=== PATIENT | male | born 1975 | race American Indian/Alaskan Native ===

== ENCOUNTER 2017-01-11 11:40 | Emergency (ER) | payer BC ==
[2017-01-11 12:16] VITALS: BP 121/74; PULSE 86; RESP 16; TEMP 98.9; O2SAT 97; BMI 43.8
--- NOTE | 2017-01-11 12:44 | ED PDOC ---
Arrival/HPI - General Chief Complaint: Abnormal Skin Integrity Time Seen by Provider: 01/11/17 12:40 Historian: Patient, Spouse - History of Present Illness Narrative History of Present Illness (Text): 01/11/17 12:52 A 42 year old male presents to the emergency department complaining of left buttock abscess for the past 10 days. Patient's said she tried to pop and drain it, but notes got bigger over the weekend. Patient denies smoking or alcohol use. Patient denies any other complaints at this time. Time/Duration: Other (10 days) Symptom Onset: Sudden Symptom Course: Unchanged Activities at Onset: Rest Context: Home Associated Symptoms (Text): none Past Medical History - Provider Review Nursing Documentation Reviewed: Yes - Infectious Disease Hx of Infectious Diseases: None - Tetanus Immunization Tetanus Immunization: Unknown - Cardiac Hx Cardiac Disorders: Yes Hx Hypertension: Yes Hx Peripheral Vascular Disease: Yes (RIGHT LEG 02-06-14) - Pulmonary Hx Respiratory Disorders: No Hx Pulmonary Embolism: Yes - Neurological Hx Neurological Disorder: No - HEENT Hx HEENT Disorder: No (WEARS RX GLASSES) - Renal Hx Renal Disorder: No - Endocrine/Metabolic Hx Endocrine Disorders: Yes Hx Diabetes Mellitus Type 1: Yes - Hematological/Oncological Hx Blood Disorders: No - Integumentary Hx Dermatological Disorder: No - Musculoskeletal/Rheumatological Hx Musculoskeletal Disorders: No Hx Falls: Yes - Gastrointestinal Hx Gastrointestinal Disorders: No - Genitourinary/Gynecological Hx Genitourinary Disorders: No - Psychiatric Hx Psychophysiologic Disorder: No Hx Depression: No Hx Emotional Abuse: No Hx Physical Abuse: No Hx Substance Use: No - Suicidal Assessment Feels Threatened In Home Enviroment: No Family/Social History - Physician Review Nursing Documentation Reviewed: Yes Family/Social History: No Known Family HX Smoking Status: Never Smoked Hx Alcohol Use: No Hx Substance Use: No Hx Substance Use Treatment: No Allergies/Home Meds Allergies/Adverse Reactions: Allergies shellfish derived Allergy (Verified 01/11/17 13:06) ANAPHYLAXIS Home Medications: Home Meds Medication Instructions Recorded Confirmed Glimepiride 2 mg PO DAILY 11/06/12 02/06/14 Metformin Hydrochloride/Lona 1 tab PO DAILY 11/06/12 02/06/14 [Janumet 1000 mg-50 mg] Warfarin [Coumadin] 10 mg PO HS 02/12/14 02/12/14 Apixaban [Eliquis] 5 mg PO DAILY 01/11/17 01/11/17 Review of Systems - Physician Review All systems were reviewed & negative as marked: Yes - Review of Systems Constitutional: absent: Fevers Respiratory: absent: SOB Skin: Abscess (Left buttock) Neurological: absent: Headache, Dizziness Physical Exam Vital Signs Reviewed: Yes Vital Signs Temp Pulse Resp BP Pulse Ox 01/11/17 12:13 98.9 F 86 16 121/74 97 Temperature: Afebrile Blood Pressure: Normal Pulse: Regular Respiratory Rate: Normal Appearance: Positive for: Well-Appearing, Non-Toxic, Uncomfortable, Other (obese ) Pain Distress: None Mental Status: Positive for: Alert and Oriented X 3 - Systems Exam Head: Present: Atraumatic, Normocephalic Pupils: Present: PERRL Extroacular Muscles: Present: EOMI Conjunctiva: Present: Normal Mouth: Present: Moist Mucous Membranes Neck: Present: Normal Range of Motion Respiratory/Chest: Present: Clear to Auscultation, Good Air Exchange. No: Respiratory Distress, Accessory Muscle Use Cardiovascular: Present: Regular Rate and Rhythm, Normal S1, S2. No: Murmurs Abdomen: Present: Normal Bowel Sounds. No: Tenderness, Distention, Peritoneal Signs Back: Present: Normal Inspection Upper Extremity: Present: Normal Inspection. No: Cyanosis, Edema Lower Extremity: Present: Normal Inspection. No: Edema Neurological: Present: GCS=15, CN II-XII Intact, Speech Normal Skin: Present: Abscess (L buttock). No: Other (not pilonidal, not perirectal) Psychiatric: Present: Alert, Oriented x 3, Normal Insight, Normal Concentration Medical Decision Making ED Course and Treatment: 01/11/17 12:50 Impression: A 42 year old male with left buttock abscess. Differential Diagnosis included but are not limited to: Plan: -- Reassess and disposition Prior Visits: Notes and results from previous visits were reviewed. Patient last reported to emergency department on 02/06/14 for evaluation of shortness of breath and chest discomfort. Patient was admitted to Dr. Barrow' service. Progress Notes: 01/11/17 20:39 Incision and drainage. The abscess was prepped and draped in usual sterile fashion using Betadine. One percent with epinephrine local lidocaine anesthesia was injected. Approximately 10 mL. The abscess was incised with a # 10 blade. Copious amounts of purulent material was expressed. 1 inch iodoform gauze packing was placed. Sterile dressing was applied. He tolerated the procedure well. - Scribe Statement The provider has reviewed the documentation as recorded by the [place] Pablo Provider Scribe Attestation: All medical record entries made by the Scribe were at my direction and personally dictated by me. I have reviewed the chart and agree that the record accurately reflects my personal performance of the history, physical exam, medical decision making, and the department course for this patient. I have also personally directed, reviewed, and agree with the discharge instructions and disposition. Disposition/Present on Arrival - Present on Arrival Any Indicators Present on Arrival: No History of DVT/PE: No History of Uncontrolled Diabetes: No Urinary Catheter: No History of Decub. Ulcer: No History Surgical Site Infection Following: None - Disposition Have Diagnosis and Disposition been Completed?: Yes Diagnosis: Abscess of buttock, left, Encounter for incision and drainage procedure Disposition: HOME/ ROUTINE Disposition Time: 13:08 Patient Plan: Discharge Condition: IMPROVED Discharge Instructions (ExitCare): Abscess (ED) Additional Instructions: Packing removal in 2 days. keep bowels soft. Prescriptions: Amoxicillin/Clavulanate [Augmentin 875 MG-125 MG] 1 tab PO Q12 #20 tab oxyCODONE/Acetaminophen [Percocet 5/325 mg Tab] 1 ea PO Q6 #15 tab Referrals: Nazario Ragland MD [Primary Care Provider] - Follow up with primary
== END 2017-01-11 13:37 | disposition home or self-care (01) ==
LOC: ED 11:40
DX: L02.31 Cutaneous abscess of buttock (principal)

== ENCOUNTER 2017-01-13 11:06 | Emergency (ER) | payer SELFPAY ==
[2017-01-13 11:30] VITALS: TEMP 98.9; BMI 42.6
[2017-01-13 11:53] VITALS: BP 113/79; PULSE 87; RESP 18; O2SAT 97
--- NOTE | 2017-01-13 13:47 | ED PDOC ---
Arrival/HPI - General Chief Complaint: Wound Check Time Seen by Provider: 01/13/17 13:15 Historian: Patient - History of Present Illness Narrative History of Present Illness (Text): 01/13/17 13:15 This 42 yo male presebnts to this ED with for wound recheck and packing removal. Patient had an I&D x 2 days ago. He stated abscess started x 12 days ago. Patient admits pain has improved since I&D. Denies new complains. Time/Duration: Other (2 days) Context: Home Past Medical History - Provider Review Nursing Documentation Reviewed: Yes - Infectious Disease Hx of Infectious Diseases: None - Tetanus Immunization Tetanus Immunization: Unknown - Cardiac Hx Cardiac Disorders: Yes Hx Hypertension: Yes Hx Peripheral Vascular Disease: Yes (RIGHT LEG 02-06-14) - Pulmonary Hx Respiratory Disorders: Yes Hx Pulmonary Embolism: Yes - Neurological Hx Neurological Disorder: No - HEENT Hx HEENT Disorder: No (WEARS RX GLASSES) - Renal Hx Renal Disorder: No - Endocrine/Metabolic Hx Endocrine Disorders: Yes Hx Diabetes Mellitus Type 1: Yes - Hematological/Oncological Hx Blood Disorders: No - Integumentary Hx Dermatological Disorder: No - Musculoskeletal/Rheumatological Hx Musculoskeletal Disorders: Yes Hx Falls: Yes - Gastrointestinal Hx Gastrointestinal Disorders: No - Genitourinary/Gynecological Hx Genitourinary Disorders: No - Psychiatric Hx Psychophysiologic Disorder: No Hx Depression: No Hx Emotional Abuse: No Hx Physical Abuse: No Hx Substance Use: No - Suicidal Assessment Feels Threatened In Home Enviroment: No Family/Social History - Physician Review Nursing Documentation Reviewed: Yes Family/Social History: No Known Family HX Smoking Status: Never Smoked Hx Alcohol Use: No Hx Substance Use: No Hx Substance Use Treatment: No Allergies/Home Meds Allergies/Adverse Reactions: Allergies shellfish derived Allergy (Verified 01/13/17 11:16) ANAPHYLAXIS Home Medications: Home Meds Medication Instructions Recorded Confirmed Apixaban [Eliquis] 5 mg PO BID 01/11/17 01/13/17 Empagliflozin/Linagliptin 1 tab PO DAILY 01/13/17 01/13/17 [Glyxambi 25 mg-5 mg Tablet] MetFORMIN [glucoPHAGE] 1,000 mg PO DAILY 01/13/17 01/13/17 oxyCODONE/Acetaminophen [Percocet 1 ea PO Q6 PRN 01/13/17 01/13/17 5/325 mg Tab] Review of Systems - Review of Systems Constitutional: Normal. absent: Fatigue, Weight Change, Fevers Eyes: Normal ENT: Normal Respiratory: Normal Cardiovascular: Normal Gastrointestinal: Normal Genitourinary Male: Normal Musculoskeletal: Normal Skin: Other (Packing removal left buttocks) Neurological: Normal Endocrine: Normal Hemo/Lymphatic: Normal Psychiatric: Normal Physical Exam Vital Signs Temp Pulse Resp BP Pulse Ox 01/13/17 11:52 87 18 113/79 97 01/13/17 11:16 98.9 F 120 H 16 111/80 96 Temperature: Afebrile Blood Pressure: Normal Pulse: Regular Respiratory Rate: Normal Appearance: Positive for: Well-Appearing, Non-Toxic, Comfortable Pain Distress: None Mental Status: Positive for: Alert and Oriented X 3 - Systems Exam Head: Present: Atraumatic, Normocephalic Pupils: Present: PERRL Extroacular Muscles: Present: EOMI Conjunctiva: Present: Normal Mouth: Present: Moist Mucous Membranes Neck: Present: Normal Range of Motion Respiratory/Chest: Present: Clear to Auscultation, Good Air Exchange. No: Respiratory Distress, Accessory Muscle Use Cardiovascular: Present: Regular Rate and Rhythm, Normal S1, S2. No: Murmurs Abdomen: Present: Normal Bowel Sounds. No: Tenderness, Distention, Peritoneal Signs Rectal: Present: Other ((+) packing in place. Less tenderness as per patient). No: Rectal Tenderness, Hemorrhoids Back: Present: Normal Inspection. No: CVA Tenderness Upper Extremity: Present: Normal Inspection. No: Cyanosis, Edema Lower Extremity: Present: Normal Inspection. No: Edema Neurological: Present: GCS=15, CN II-XII Intact, Speech Normal Skin: Present: Warm, Dry, Normal Color. No: Rashes Psychiatric: Present: Alert, Oriented x 3, Normal Insight, Normal Concentration Medical Decision Making ED Course and Treatment: 01/13/17 13:45 Patient is resting comfortably, and is in no acute distress. Patient was instructed to follow up with PMD in 1-2 days for further evaluation Re-evaluation Time: 13:45 Reassessment Condition: Re-examined, Improved - Medication Orders Current Medication Orders: Discontinued Medications Trimethoprim/Sulfamethoxazole (Bactrim Ds Tab) 1 tab PO STAT STA PRN Reason: Protocol Stop: 01/13/17 13:50 Last Admin: 01/13/17 14:06 Dose: - Procedure PROCEDURE NOTE (Text): 01/13/17 13:45 Procedure: Repacking Performed by the emergency provider Indication: Abscess Location: left buttock Preparation: The area was prepped and draped in the usual sterile fashion and was cleansed with . Procedure: Packing was inserted by me The abscess was packed 1/2 inch packing. A dressing was applied by the RN. Post-Procedure: On exam the abscess is notably less fluctuant. The patient tolerated the procedure well, and there were no complications. Disposition/Present on Arrival - Present on Arrival Any Indicators Present on Arrival: No History of DVT/PE: Yes History of Uncontrolled Diabetes: No Urinary Catheter: No History of Decub. Ulcer: No History Surgical Site Infection Following: None - Disposition Have Diagnosis and Disposition been Completed?: Yes Diagnosis: Encounter for wound re-check, Change or removal of wound packing Disposition: HOME/ ROUTINE Disposition Time: 13:48 Patient Plan: Discharge Condition: GOOD Discharge Instructions (ExitCare): Abscess Incision and Drainage (ED) Additional Instructions: Call private doctor for wound check and packing removal in 2 days. Return to emergency if unable to see your doctor. Continue with antibiotic. Prescriptions: Sulfamethoxazole/Trimethoprim [Bactrim DS 800 mg-160 mg] 1 tab PO BID #20 tab Referrals: Nazario Ragland MD [Primary Care Provider] - Follow up with primary Forms: WORK NOTE
[2017-01-13] MEDS ORDERED: Tmp-Smz 800 mg-160 mg DS Tab PO STA (13:49)
== END 2017-01-13 14:13 | disposition home or self-care (01) ==
LOC: ED 11:06
DX: Z51.89 Encounter for other specified aftercare (principal); Z48.00 Encounter for change or removal of nonsurgical wound dressing

== ENCOUNTER 2017-01-15 14:54 | Emergency (ER) | payer SELFPAY ==
[2017-01-15 15:33] VITALS: BP 108/76; PULSE 93; RESP 18; TEMP 98.2; O2SAT 98; BMI 42.6
--- NOTE | 2017-01-15 15:42 | ED PDOC ---
Arrival/HPI - General Chief Complaint: Wound Check Time Seen by Provider: 01/15/17 15:30 Historian: Patient - History of Present Illness Narrative History of Present Illness (Text): 01/15/17 15:30 This 42 yo male presents to this ED with for wound check and packing removal x 2 days. Patient stated he was seen 2 days ago for wound check and packing removal. After removal of packing x 2 days ago, a new packing was placed and patient was recommended to return to ED today. Patient stated he is compliant with ABX. He said abscess has significant improved, and denies fever or bleeding. Time/Duration: Other (2 days) Context: Home Past Medical History - Provider Review Nursing Documentation Reviewed: Yes - Infectious Disease Hx of Infectious Diseases: None - Tetanus Immunization Tetanus Immunization: Unknown - Cardiac Hx Cardiac Disorders: Yes Hx Hypertension: Yes Hx Peripheral Vascular Disease: Yes (RIGHT LEG 02-06-14) - Pulmonary Hx Respiratory Disorders: Yes Hx Pulmonary Embolism: Yes - Neurological Hx Neurological Disorder: No - HEENT Hx HEENT Disorder: No (WEARS RX GLASSES) - Renal Hx Renal Disorder: No - Endocrine/Metabolic Hx Endocrine Disorders: Yes Hx Diabetes Mellitus Type 1: Yes - Hematological/Oncological Hx Blood Disorders: No - Integumentary Hx Dermatological Disorder: No - Musculoskeletal/Rheumatological Hx Musculoskeletal Disorders: Yes Hx Falls: Yes - Gastrointestinal Hx Gastrointestinal Disorders: No - Genitourinary/Gynecological Hx Genitourinary Disorders: No - Psychiatric Hx Psychophysiologic Disorder: No Hx Depression: No Hx Emotional Abuse: No Hx Physical Abuse: No Hx Substance Use: No - Suicidal Assessment Feels Threatened In Home Enviroment: No Family/Social History - Physician Review Nursing Documentation Reviewed: Yes Family/Social History: No Known Family HX Smoking Status: Never Smoked Hx Alcohol Use: No Hx Substance Use: No Hx Substance Use Treatment: No Allergies/Home Meds Allergies/Adverse Reactions: Allergies shellfish derived Allergy (Verified 01/13/17 11:16) ANAPHYLAXIS Home Medications: Home Meds Medication Instructions Recorded Confirmed Apixaban [Eliquis] 5 mg PO BID 01/11/17 01/13/17 Empagliflozin/Linagliptin 1 tab PO DAILY 01/13/17 01/13/17 [Glyxambi 25 mg-5 mg Tablet] MetFORMIN [glucoPHAGE] 1,000 mg PO DAILY 01/13/17 01/13/17 oxyCODONE/Acetaminophen [Percocet 1 ea PO Q6 PRN 01/13/17 01/13/17 5/325 mg Tab] Review of Systems - Review of Systems Constitutional: Normal. absent: Fatigue, Weight Change, Fevers Eyes: Normal ENT: Normal Respiratory: Normal Cardiovascular: Normal Gastrointestinal: Normal Genitourinary Male: Normal Musculoskeletal: Normal Skin: Other (See HPI) Neurological: Normal Endocrine: Normal Hemo/Lymphatic: Normal Psychiatric: Normal Physical Exam Vital Signs Temp Pulse Resp BP Pulse Ox 01/15/17 15:00 98.2 F 93 H 18 108/76 98 Temperature: Afebrile Blood Pressure: Normal Pulse: Regular Respiratory Rate: Normal Appearance: Positive for: Well-Appearing, Non-Toxic, Comfortable Pain Distress: None Mental Status: Positive for: Alert and Oriented X 3 - Systems Exam Head: Present: Atraumatic, Normocephalic Pupils: Present: PERRL Extroacular Muscles: Present: EOMI Conjunctiva: Present: Normal Mouth: Present: Moist Mucous Membranes Neck: Present: Normal Range of Motion Rectal: Present: Other (Packing in place. No significant serousanguinous discharge. No wound tenderness. No cellulitis) Upper Extremity: Present: Normal Inspection, Normal ROM, NORMAL PULSES, Neurovascularly Intact, Capillary Refill < 2s Lower Extremity: Present: Normal Inspection, Normal ROM, Neurovascularly Intact , Capillary Refill < 2 s. No: Edema Neurological: Present: GCS=15, CN II-XII Intact, Speech Normal, Motor Func Grossly Intact, Normal Sensory Function, Normal Cerebellar Funct, Gait Normal, Memory Normal Skin: Present: Warm, Dry, Normal Color. No: Rashes Psychiatric: Present: Alert, Oriented x 3 Medical Decision Making ED Course and Treatment: 01/15/17 15:46 Re-evaluation. Patient feels better. Discussed results and plan with patient who expresses understanding. All questions answered and there is agreement with the plan to discharge home with instructions. Patient stable for discharge. Return if symptoms persist or worsen. Abscess has improved, non tender on palpation. No discharge. Packing was removed without complication. Wound dressing applied. Patient was recommended to continue with ABX, and to change wound dressing 1 - 2 time a day or as needed. Patient encourage to see his PMD in 1-2 days for wound care, and to return to emergency if symptoms returns Re-evaluation Time: 15:46 Reassessment Condition: Re-examined, Improved Disposition/Present on Arrival - Present on Arrival Any Indicators Present on Arrival: No History of DVT/PE: Yes History of Uncontrolled Diabetes: No Urinary Catheter: No History of Decub. Ulcer: No History Surgical Site Infection Following: None - Disposition Have Diagnosis and Disposition been Completed?: Yes Diagnosis: Encounter for wound re-check, Encounter for abscess packing removal Disposition: HOME/ ROUTINE Disposition Time: 15:49 Patient Plan: Discharge Condition: IMPROVED Discharge Instructions (ExitCare): Abscess Incision and Drainage (ED) Additional Instructions: Call private doctor for follow up visit 1-2 days. Take medication as instructed. Return to emergency if symptoms returns. Clean wound with soap and water only. DO NOT USE PEROXIDE. Cover wound with gauze Referrals: Nazario Ragland MD [Primary Care Provider] - Follow up with primary Forms: WORK NOTE
== END 2017-01-15 16:15 | disposition home or self-care (01) ==
LOC: ED 14:54
DX: Z48.01 Encounter for change or removal of surgical wound dressing (principal)

== ENCOUNTER 2017-09-01 21:08 | Inpatient (IN) | payer BC ==
[2017-09-01 21:11] VITALS: BMI 40.6
[2017-09-01 22:42] LABS: VENOUS BLOOD GAS BASE EXCESS 1.1 mmol/L (0.0-2.0); VENOUS BLOOD GAS PO2 34 mm/Hg (30-55); VENOUS BLOOD PH 7.32 (7.32-7.43)
[2017-09-01 22:44] LABS: BASO # 0.06 K/mm3 (0.0-2.0); BASO % 0.4 % (0.0-3.0); EOS # 0.3 (0.0-0.7); EOS % 1.7 % (1.5-5.0); GRAN # 11.6 (1.4-6.5); GRAN % 77.2 % (50.0-68.0); HEMOGLOBIN 14.6 g/dL (14.0-18.0); LYMPH # 2.1 (1.2-3.4); MEAN CORPUSCULAR HEMOGLOBIN 27.4 pg (25.0-35.0); MEAN CORPUSCULAR HGB CONC 34.7 g/dl (31.0-37.0); MEAN PLATELET VOLUME 10.6 fl (7.0-11.0); MONO % 6.7 % (1.0-6.0); RBC 5.33 10^6/uL (3.5-6.1); RED CELL DISTRIBUTION WIDTH 13.1 % (11.5-14.5)
[2017-09-01] MEDS ORDERED: Sodium Chloride 0.9% 1,000 ML IV STA (22:47)
--- NOTE | 2017-09-01 22:47 | ED PDOC ---
Arrival/HPI - General Historian: Patient - History of Present Illness Time/Duration: Other (2 days) - General Chief Complaint: Abnormal Skin Integrity Time Seen by Provider: 09/01/17 21:41 - History of Present Illness Narrative History of Present Illness (Text): 09/01/17 22:46 42-year-old diabetic male presents today with a 2 day history of testicular pain swelling and erythema. Patient states he thinks he has a "boil". Patient states 2 days ago he developed pain to the scrotum. pt states that he has had abscess in the past. pt c/o pain. c/o subjective fevers. pt states he is a diabetic. denies cp or sob. no abdominal pain. denies dysuria or uinary frequently. pt denies dizziness or weakness. pt states scrotum became swollen and more erythematous over the past 2 days. (Kaitlin Walker) Past Medical History - Provider Review Nursing Documentation Reviewed: Yes - Travel History Have you recently traveled outside [place] w/in the past 3 mons?: No - Infectious Disease Hx of Infectious Diseases: None - Tetanus Immunization Tetanus Immunization: Unknown - Cardiac Hx Cardiac Disorders: Yes Hx Hypertension: Yes Hx Peripheral Vascular Disease: Yes (RIGHT LEG 02-06-14) - Pulmonary Hx Respiratory Disorders: Yes Hx Pulmonary Embolism: Yes - Neurological Hx Neurological Disorder: No - HEENT Hx HEENT Disorder: No (WEARS RX GLASSES) - Renal Hx Renal Disorder: No - Endocrine/Metabolic Hx Endocrine Disorders: Yes Hx Diabetes Mellitus Type 2: Yes - Hematological/Oncological Hx Blood Disorders: No - Integumentary Hx Dermatological Disorder: No - Musculoskeletal/Rheumatological Hx Musculoskeletal Disorders: Yes Hx Falls: Yes - Gastrointestinal Hx Gastrointestinal Disorders: No - Genitourinary/Gynecological Hx Genitourinary Disorders: No - Psychiatric Hx Psychophysiologic Disorder: No Hx Depression: No Hx Emotional Abuse: No Hx Physical Abuse: No Hx Substance Use: No - Anesthesia Hx Anesthesia: No - Suicidal Assessment Feels Threatened In Home Enviroment: No Family/Social History - Physician Review Nursing Documentation Reviewed: Yes Family/Social History: Unknown Family HX Smoking Status: Never Smoked Hx Alcohol Use: No Hx Substance Use: No Hx Substance Use Treatment: No Allergies/Home Meds Allergies/Adverse Reactions: Allergies shellfish derived Allergy (Verified 01/13/17 11:16) ANAPHYLAXIS Home Medications: Home Meds Medication Instructions Recorded Confirmed Apixaban [Eliquis] 5 mg PO BID 01/11/17 09/01/17 MetFORMIN [glucoPHAGE] 1,000 mg PO DAILY 01/13/17 09/01/17 Review of Systems - Review of Systems Constitutional: Fevers. absent: Fatigue Respiratory: absent: SOB, Cough Cardiovascular: absent: Chest Pain, Palpitations Gastrointestinal: absent: Abdominal Pain, Nausea, Vomiting Genitourinary Male: Other (scrotal swelling/pain/infection). absent: Dysuria, Frequency, Hematuria Musculoskeletal: absent: Arthralgias, Back Pain, Neck Pain Skin: absent: Rash, Pruritis Neurological: absent: Headache, Dizziness Psychiatric: absent: Anxiety, Depression, Suicidal Ideation Physical Exam Vital Signs Reviewed: Yes Temperature: Afebrile Blood Pressure: Hypertensive Pulse: Tachycardic Respiratory Rate: Normal Appearance: Positive for: Well-Appearing, Non-Toxic, Uncomfortable Pain Distress: Mild Mental Status: Positive for: Alert and Oriented X 3 - Systems Exam Head: Present: Atraumatic Mouth: Present: Moist Mucous Membranes Neck: Present: Normal Range of Motion Respiratory/Chest: Present: Clear to Auscultation Cardiovascular: Present: Regular Rate and Rhythm Abdomen: No: Tenderness, Distention, Rebound, Guarding Genitourinary Male: Present: Testicle Tenderness, Erythema, Other (scrotal swelling and erythema; + large area of induration noted to right side of scrotum ; chaparoned by dr. kilgore.). No: Normal External Genitalia, Penile Discharge , Hernias Back: Present: Normal Inspection Upper Extremity: Present: Normal ROM Lower Extremity: Present: Normal ROM Neurological: Present: GCS=15 Skin: Present: Warm, Dry Psychiatric: Present: Alert, Oriented x 3 Vital Signs Temp Pulse Resp BP Pulse Ox 09/02/17 02:48 98.4 F 88 18 125/82 100 09/02/17 01:54 92 H 18 124/84 98 09/02/17 00:50 97 H 16 118/75 99 09/01/17 23:40 92 H 15 109/75 100 09/01/17 21:16 99.2 F 112 H 18 134/93 H 98 Medical Decision Making ED Course and Treatment: 09/01/17 23:23 42yr old male with 2 day history of scrotal pain/swelling and possible abscess. cbc; wbc:15 cmp: glucose; 479. no gap lactate; 2.2 UA: 40 ketones blood cultures pending urine cultures pending pt seen and evaluated by dr. kilgore; testicular US:FINDINGS: Right testicle: No mass. No torsion. Left testicle: No mass. No torsion. Epididymides: Unremarkable as visualized. Scrotum: Scrotal wall thickening. Poorly defined heterogeneous area of decreased attenuation with mild vascularity within right scrotal wall, roughly 5.2 x 3.4 cm. IMPRESSION: 1. Findings compatible with scrotal cellulitis and phlegmon/early abscess. abd/pelvis with IV contrast; FINDINGS: Limitations: Motion artifact - mild. Lower thorax: Minimal atelectasis. Few pulmonary nodules, up to 0.2 cm. ABDOMEN: Liver: Probable mild fatty infiltration. Gallbladder and bile ducts: No calcified stones. No ductal dilation. Pancreas: No ductal dilation. No mass. Spleen: 1.0 x 1.0 x 1.2 cm hypodense lesion with nondiagnostic imaging features. Too small to characterize lesion. Adrenals: Mild hypertrophy of adrenal glands. Kidneys and ureters: No mass. No hydronephrosis. Stomach and bowel: Few scattered diverticula within colon. No associated inflammatory stranding. No definite mural thickening. No obstruction. Appendix: Normal caliber. No inflammation. PELVIS: Bladder: Unremarkable. Reproductive: Scrotal wall thickening/stranding. 4.4 x 2.4 x 3.6 cm peripherally enhancing collection within right scrotal wall. ABDOMEN and PELVIS: Intraperitoneal space: No significant fluid collection. No free air. Bones/joints: No acute fracture. Soft tissues: Minimal gynecomastia. Small umbilical hernia containing fat. Vasculature: Few rounded calcifications within pelvis, likely phleboliths. Lymph nodes: No pathologically enlarged lymph nodes. IMPRESSION: 1. Findings compatible with scrotal cellulitis and abscess. 2. Splenic lesion. Recommend further evaluation with PET, abdominal MRI or biopsy. 3. Pulmonary nodules. For low-risk patients, no follow-up is necessary. For high -risk patients (smoking history or other known risk factors) an optional CT at 12 months could be performed. 4. Incidental/non-acute findings are described above. morphine given for pain; pt given NS iv bolus x 2 code sepsis called; pt started empirically on vancomycin and zosyn. repeat fs; 332 4units regular insulin sq ordered. additional 2000cc NS ordered. will check repeat lactic acid. pt reassessment; pt feeling better; all results discussed with patient and family in depth 09/02/17 00:[address] pompa covering for dr. rivers ;accepts admission for diabetic with scrotal abscess/cellulitis. impression; cellulitis, abscess, scrotal admit dr. pompa (Kaitlin Walker) - Lab Interpretations Microbiology Results: Microbiology Results 09/01/17 22:30 Blood Blood Culture - Final NO GROWTH AFTER 5 DAYS 09/01/17 22:30 Blood Gram Stain - Final TEST NOT PERFORMED 09/01/17 22:15 Blood Blood Culture - Final NO GROWTH AFTER 5 DAYS 09/01/17 22:15 Blood Gram Stain - Final TEST NOT PERFORMED 09/01/17 23:14 Urine Urine Culture - Final No Growth (<1,000 CFU/ML) Lab Results: 09/01/17 22:30 09/01/17 22:30 Lab Results 09/02/17 01:27: Lactic Acid 2.2 H 09/02/17 01:00: POC Glucose (mg/dL) 332 H 09/01/17 23:14: Urine Color Yellow, Urine Appearance Clear, Urine pH 6.0, Ur Specific Lennon <= 1.005, Urine Protein Negative, Urine Glucose (UA) >=1000, Urine Ketones 40 H, Urine Blood Negative, Urine Nitrate Negative, Urine Bilirubin Negative, Urine Urobilinogen 0.2, Ur Leukocyte Esterase Negative 09/01/17 22:38: pO2 34, VBG pH 7.32, VBG pCO2 55.0, VBG HCO3 28.3 H, VBG Total CO2 30.0 H, VBG O2 Sat (Calc) 68.9 H, VBG Base Excess 1.1, VBG Potassium 6.6 H* , Glucose 490 H*, Lactate 2.3 H, FiO2 21.0, Sodium 136.0, Chloride 99.0, Venous Blood Potassium 6.6 H* 09/01/17 22:30: WBC 15.0 H D, RBC 5.33, Hgb 14.6, Hct 42.1, MCV 79.0 L, MCH 27.4 , MCHC 34.7, RDW 13.1, Plt Count 303, MPV 10.6, Gran % 77.2 H, Lymph % (Auto) 14.0 L, Lassen % (Auto) 6.7 H, Eos % (Auto) 1.7, Baso % (Auto) 0.4, Gran # 11.60 H , Lymph # 2.1, Lassen # 1.0 H, Eos # 0.3, Baso # 0.06 09/01/17 22:30: Sodium 140, Potassium 4.6, Chloride 99, Carbon Dioxide 28, Anion Gap 18, BUN 12, Creatinine 0.7 L, Est GFR ( Amer) > 60, Est GFR ( Non-Af Amer) > 60, Random Glucose 479 H* D, Calcium 9.7, Total Bilirubin 0.6, AST 20, ALT 22, Alkaline Phosphatase 108, Total Protein 7.4, Albumin 4.1, Globulin 3.3, Albumin/Globulin Ratio 1.2 - RAD Interpretation Radiology Orders: 09/01/17 21:42 TESTES DUPLEX COMPLETE [US] Stat 09/01/17 22:52 ABD & PELVIS IV CONTRAST ONLY [CT] Stat - Medication Orders Current Medication Orders: Discontinued Medications Apixaban (Eliquis) 5 mg PO BID AKIL PRN Reason: Protocol Last Admin: 09/05/17 17:51 Dose: Apixaban (Eliquis) 5 mg PO DAILY AKIL PRN Reason: Protocol Hydromorphone HCl (Dilaudid) 0.5 mg IVP Q15M PRN PRN Reason: Pain, moderate (4-7) Stop: 09/03/17 15:31 Sodium Chloride (Sodium Chloride 0.9%) 1,000 mls @ 999 mls/hr IV .Q1H1M STA Stop: 09/01/17 23:47 Last Admin: 09/01/17 23:03 Dose: 999 mls/hr eMAR Start Stop Document 09/01/17 23:03 CNR (Rec: 09/01/17 23:04 CNR [id number]) Intravenous Solution Start Date 09/01/17 Start Time 23:03 Vancomycin HCl (Vancomycin 1gm) 1 gm in 250 mls @ 167 mls/hr IVPB STAT STA PRN Reason: Protocol Stop: 09/02/17 00:23 Last Admin: 09/02/17 00:48 Dose: 167 mls/hr eMAR Start Stop Document 09/02/17 00:48 CNR (Rec: 09/02/17 00:48 CNR [id number]) Intravenous Solution Start Date 09/02/17 Start Time 00:48 Piperacillin Sod/Tazobactam Sod (Zosyn 3.375 In Ns 100ml) 100 mls @ 200 mls/hr IVPB STAT STA PRN Reason: Protocol Stop: 09/01/17 23:23 Last Admin: 09/01/17 23:31 Dose: 200 mls/hr eMAR Start Stop Document 09/01/17 23:31 CNR (Rec: 09/01/17 23:32 CNR [id number]) Intravenous Solution Start Date 09/01/17 Start Time 23:31 End Date 09/02/17 End time 00:01 Total Infusion Time 30 Sodium Chloride (Sodium Chloride 0.9%) 1,000 mls @ 999 mls/hr IV .Q1H1M STA Stop: 09/02/17 01:32 Last Admin: 09/02/17 00:49 Dose: 999 mls/hr eMAR Start Stop Document 09/02/17 00:49 CNR (Rec: 09/02/17 00:49 CNR [id number]) Intravenous Solution Start Date 09/02/17 Start Time 00:49 Sodium Chloride (Sodium Chloride 0.9%) 2,000 mls @ 500 mls/hr IV .Q4H STA Stop: 09/02/17 05:51 Last Admin: 09/02/17 02:00 Dose: 500 mls/hr eMAR Start Stop Document 09/02/17 02:00 CNR (Rec: 09/02/17 02:48 CNR [id number]) Intravenous Solution Start Date 09/02/17 Start Time 02:00 Sodium Chloride (Sodium Chloride 0.9%) 1,000 mls @ 100 mls/hr IV .Q10H AKIL Last Admin: 09/05/17 17:24 Dose: 100 mls/hr eMAR Start Stop Document 09/05/17 17:24 CV (Rec: 09/05/17 17:24 CV [id number]) Intravenous Solution Start Date 09/05/17 Start Time 17:24 Piperacillin Sod/Tazobactam Sod (Zosyn 3.375 In Ns 100ml) 100 mls @ 200 mls/hr IVPB Q6 AKIL PRN Reason: Protocol Stop: 09/09/17 06:01 Last Admin: 09/06/17 17:12 Dose: Not Given Non-Admin Reason: Patient Refused Vancomycin HCl (Vancomycin 1gm) 1 gm in 250 mls @ 167 mls/hr IVPB DAILY AKIL PRN Reason: Protocol Vancomycin HCl (Vancomycin 1gm) 1 gm in 250 mls @ 167 mls/hr IVPB Q12 AKIL PRN Reason: Protocol Last Admin: 09/06/17 09:27 Dose: 167 mls/hr eMAR Start Stop Document 09/06/17 09:27 EP (Rec: 09/06/17 09:27 EP [facility] [id number]) Intravenous Solution Start Date 09/06/17 Start Time 09:27 End Date 09/06/17 End time 10:57 Total Infusion Time 90 Lactated Ringer's (Lactated Ringer's) 1,000 mls @ 75 mls/hr IV .[id number] AKIL Stop: 09/03/17 15:46 Insulin Detemir (Levemir) 10 unit SC [facility] Last Admin: 09/04/17 21:46 Dose: 10 unit MAR Blood Glucose Document 09/04/17 21:46 [place] (Rec: 09/04/17 21:46 TX [facility] [id number]) Blood Glucose Finger Stick Blood Glucose (70-120) 319 Subcutaneous Administrations Document 09/04/17 21:46 TX (Rec: 09/04/17 21:46 TX [facility] [id number]) Injection Site MAR Injection Site Right Abdomen Charges for Administration # of Subcutaneous Administrations 1 Insulin Detemir (Levemir) 15 unit SC [facility] Insulin Detemir (Levemir) 13 unit SC [facility] Last Admin: 09/05/17 21:26 Dose: 13 unit MAR Blood Glucose Document 09/05/17 21:26 KT (Rec: 09/05/17 21:26 KT [id number]) Blood Glucose Finger Stick Blood Glucose (70-120) 292 Subcutaneous Administrations Document 09/05/17 21:26 KT (Rec: 09/05/17 21:26 KT [id number]) Charges for Administration # of Subcutaneous Administrations 1 Insulin Human Lispro (Humalog) 3 units SC [facility] Last Admin: 09/06/17 17:11 Dose: 3 units MAR Blood Glucose Document 09/06/17 17:11 EP (Rec: 09/06/17 17:12 EP [id number]) Blood Glucose Finger Stick Blood Glucose (70-120) 278 Subcutaneous Administrations Document 09/06/17 17:11 EP (Rec: 09/06/17 17:12 EP [id number]) Charges for Administration # of Subcutaneous Administrations 1 Insulin Human Lispro (Humalog Low) 0 units SC ACHS AKIL PRN Reason: Protocol Last Admin: 09/06/17 17:12 Dose: 3 units MAR Blood Glucose Document 09/06/17 17:12 EP (Rec: 09/06/17 17:12 EP [id number]) Blood Glucose Finger Stick Blood Glucose (70-120) 278 Subcutaneous Administrations Document 09/06/17 17:12 EP (Rec: 09/06/17 17:12 EP [id number]) Charges for Administration # of Subcutaneous Administrations 1 Insulin Human Regular (Humulin R) 4 units SC STAT STA Stop: 09/02/17 01:14 Last Admin: 09/02/17 01:24 Dose: 4 units Subcutaneous Administrations Document 09/02/17 01:24 CNR (Rec: 09/02/17 01:24 CNR [id number]) Injection Site MAR Injection Site Right Abdomen Charges for Administration # of Subcutaneous Administrations 1 Insulin Human Regular (Humulin R Low) 0 units SC ACHS AKIL PRN Reason: Protocol Last Admin: 09/06/17 12:19 Dose: 4 units MAR Blood Glucose Document 09/06/17 12:19 EP (Rec: 09/06/17 12:19 EP [id number]) Blood Glucose Finger Stick Blood Glucose (70-120) 328 Subcutaneous Administrations Document 09/06/17 12:19 EP (Rec: 09/06/17 12:19 EP [id number]) Injection Site MAR Injection Site Right Arm Charges for Administration # of Subcutaneous Administrations 1 Morphine Sulfate (Morphine) 4 mg IVP STAT STA Stop: 09/01/17 23:18 Last Admin: 09/01/17 23:32 Dose: 4 mg MAR Pain Assessment Document 09/01/17 23:32 CNR (Rec: 09/01/17 23:32 CNR [id number]) Pain Reassessment Is this a pain reassessment? Yes IVP Administration Document 09/01/17 23:32 CNR (Rec: 09/01/17 23:32 CNR [id number]) Charges for Administration # of IVP Administrations 1 Morphine Sulfate (Morphine) 2 mg IVP Q4H PRN PRN Reason: Pain, moderate (4-7) Last Admin: 09/05/17 21:26 Dose: 2 mg MAR Pain Assessment Document 09/05/17 21:26 KT (Rec: 09/05/17 21:26 KT [id number]) Pain Reassessment Is this a pain reassessment? No Presence of Pain Presence of Pain Yes Pain Scale Used Pain Scale Used Numeric Location Pain Location Body Site Groin IVP Administration Document 09/05/17 21:26 KT (Rec: 09/05/17 21:26 KT [id number]) Charges for Administration # of IVP Administrations 1 Morphine Sulfate (Morphine) 2 mg IVP ONCE STA Stop: 09/05/17 06:59 Last Admin: 09/05/17 07:10 Dose: 2 mg MAR Pain Assessment Document 09/05/17 07:10 [place] (Rec: 09/05/17 07:10 TX [facility] [id number]) Pain Reassessment Is this a pain reassessment? No Sleep Is patient sleeping during reassessment? No Presence of Pain Presence of Pain Yes Pain Scale Used Pain Scale Used Numeric Location Upper or Lower Lower Pain Location Body Site Groin Description Intensity of Pain at present 10 Pain Behavior Moaning Alleviating Factors/Management Medication Techniques Alleviating Factors Medication IVP Administration Document 09/05/17 07:10 TX (Rec: 09/05/17 07:10 TX [facility] [id number]) Charges for Administration # of IVP Administrations 1 Ondansetron HCl (Zofran Inj) 4 mg IVP STAT STA Stop: 09/02/17 00:52 Last Admin: 09/02/17 00:51 Dose: 4 mg IVP Administration Document 09/02/17 00:51 CNR (Rec: 09/02/17 01:03 CNR [id number]) Charges for Administration # of IVP Administrations 1 Ondansetron HCl (Zofran Inj) 4 mg IVP Q4H PRN PRN Reason: Nausea/Vomiting Oxycodone/Acetaminophen (Percocet 5/325 Mg Tab) 1 tab PO Q4H PRN PRN Reason: Pain, moderate (4-7) Stop: 09/05/17 07:13 Oxycodone/Acetaminophen (Percocet 5/325 Mg Tab) 1 tab PO Q6H PRN PRN Reason: Bladder Spasm Stop: 09/06/17 13:48 Pantoprazole Sodium (Protonix Ec Tab) 40 mg PO 0600 AKIL Last Admin: 09/06/17 05:25 Dose: 40 mg Disposition/Present on Arrival - Present on Arrival Any Indicators Present on Arrival: Yes History of DVT/PE: Yes History of Uncontrolled Diabetes: No Urinary Catheter: No History of Decub. Ulcer: No History Surgical Site Infection Following: None - Disposition Have Diagnosis and Disposition been Completed?: Yes Disposition Time: 00:31 Patient Plan: Admission - Disposition Diagnosis: Sepsis, Cellulitis, scrotum, Abscess, scrotum, Hyperglycemia Disposition: HOSPITALIZED Condition: FAIR
[2017-09-01] MEDS ORDERED: Dextrose 50% SYRINGE Inj (50 ml) IVP STA (22:52)
[2017-09-01] MEDS ORDERED: Insulin Regular 1 UNITS/0.01 ML ML IV STA (22:53)
[2017-09-01] MEDS ORDERED: Piperacillin/Tazobact 3.375 gm 100 ML IVPB STA (22:54)
[2017-09-01] MEDS ORDERED: Vancomycin 1gm in NS 250ml 1 GM/250 ML BAG IVPB STA (22:54)
[2017-09-01] MEDS ORDERED: Sodium Bicarbonate (8.4%) 50 Meq Syringe IVP ONE (23:00)
[2017-09-01] MEDS ORDERED: Morphine 4 mg/ml ISec IVP STA ×2 (23:03→23:17)
[2017-09-01 23:11] LABS: ALB/GLOB RATIO 1.2 (1.1-1.8); ALBUMIN 4.1 g/dL (3.0-4.8); ALT/SGPT 22 U/L (7-56); AST/SGOT 20 U/L (17-59); BLOOD UREA NITROGEN 12 mg/dL (7-21); CALCIUM 9.7 mg/dL (8.4-10.5); GFR AFRICAN-AMERICAN > 60; GFR NON-AFRICAN AMERICAN > 60
[2017-09-01 23:25] LABS: URINE APPEARANCE CLEAR (CLEAR); URINE BILIRUBIN NEGATIVE (NEGATIVE); URINE BLOOD NEGATIVE (NEGATIVE); URINE COLOR YELLOW (YELLOW); URINE GLUCOSE (UA) >=1000 mg/dL (NEGATIVE); URINE LEUKOCYTE ESTERASE NEGATIVE Leu/uL (NEGATIVE); URINE NITRATE NEGATIVE (NEGATIVE); URINE PROTEIN NEGATIVE mg/dL (<30 mg/dL); URINE UROBILINOGEN 0.2 E.U./dL (<1 E.U./dL)
--- NOTE | 2017-09-01 23:36 | US ---
EXAM: US Scrotum CLINICAL HISTORY: 42 years old, male; Pain; Groin pain; Additional info: Scrotal swelling/cellulitis/abscess TECHNIQUE: Real-time ultrasound of the scrotum with color Doppler and image documentation. COMPARISON: No relevant prior studies available. FINDINGS: Right testicle: No mass. No torsion. Left testicle: No mass. No torsion. Epididymides: Unremarkable as visualized. Scrotum: Scrotal wall thickening. Poorly defined heterogeneous area of decreased attenuation with mild vascularity within right scrotal wall, roughly 5.2 x 3.4 cm. IMPRESSION: 1. Findings compatible with scrotal cellulitis and phlegmon/early abscess.
[2017-09-02] MEDS ORDERED: Sodium Chloride 0.9% 1,000 ML IV STA (00:32)
--- NOTE | 2017-09-02 00:46 | CT ---
EXAM: CT Abdomen and Pelvis With Intravenous Contrast CLINICAL HISTORY: 42 years old, male; Pain; Other: Scrotal; Additional info: Scrotal pain TECHNIQUE: Axial computed tomography images of the abdomen and pelvis with intravenous contrast. All CT scans at this facility use one or more dose reduction techniques, viz.: automated exposure control; ma/kV adjustment per patient size (including targeted exams where dose is matched to indication; i.e. head); or iterative reconstruction technique. Coronal and sagittal reformatted images were created and reviewed. CONTRAST: 147 mL of OMNI 350 administered intravenously. COMPARISON: No relevant prior studies available. FINDINGS: Limitations: Motion artifact - mild. Lower thorax: Minimal atelectasis. Few pulmonary nodules, up to 0.2 cm. ABDOMEN: Liver: Probable mild fatty infiltration. Gallbladder and bile ducts: No calcified stones. No ductal dilation. Pancreas: No ductal dilation. No mass. Spleen: 1.0 x 1.0 x 1.2 cm hypodense lesion with nondiagnostic imaging features. Too small to characterize lesion. Adrenals: Mild hypertrophy of adrenal glands. Kidneys and ureters: No mass. No hydronephrosis. Stomach and bowel: Few scattered diverticula within colon. No associated inflammatory stranding. No definite mural thickening. No obstruction. Appendix: Normal caliber. No inflammation. PELVIS: Bladder: Unremarkable. Reproductive: Scrotal wall thickening/stranding. 4.4 x 2.4 x 3.6 cm peripherally enhancing collection within right scrotal wall. ABDOMEN and PELVIS: Intraperitoneal space: No significant fluid collection. No free air. Bones/joints: No acute fracture. Soft tissues: Minimal gynecomastia. Small umbilical hernia containing fat. Vasculature: Few rounded calcifications within pelvis, likely phleboliths. Lymph nodes: No pathologically enlarged lymph nodes. IMPRESSION: 1. Findings compatible with scrotal cellulitis and abscess. 2. Splenic lesion. Recommend further evaluation with PET, abdominal MRI or biopsy. 3. Pulmonary nodules. For low-risk patients, no follow-up is necessary. For high-risk patients (smoking history or other known risk factors) an optional CT at 12 months could be performed. 4. Incidental/non-acute findings are described above.
[2017-09-02] MEDS ORDERED: Insulin Regular 1 UNITS/0.01 ML ML SC STA (01:13)
[2017-09-02] MEDS ORDERED: Sodium Chloride 0.9% 2,000 ML IV STA (01:52)
--- NOTE | 2017-09-02 03:34 | CP.PCM.HP ---
<NevesDaniel - Last Filed: 09/02/17 04:59> History of Present Illness - History of Present Illness History of Present Illness: Mr. Noble is a 42 year old AA male with a past medical history significant for PE approximately 5 years ago on Eliquis and DM2 who presents with two days of right sided scrotal swelling and tenderness that has been progressively worsening since its onset. Patient reports that two days ago he noticed tenderness, redness and swelling to the right side of his scrotum with no inciting event noted. He reports that he often gets "boils" in his groin and believed this swelling to be another recurrence of this. However, the pain and swelling continued to worsen to the point that the patient came to the hospital for further evaluation. He denies any fever, chills, headache, changes in his vision, chest pain, palpitations, SOB, cough, wheezing, abdominal pain, N/V, diarrhea, constipation, pain/burning with urination, difficulty initiating urination, penile discharge, any new sexual partners or any numbness/tingling/ weakness of any extremity. PMH: PE and DM2 PSH: Denies Family History: Denies Social History: Denies any tobacco, alcohol or illicit drug use; lives at home with his and son Allergies: Shellfish Home Meds: As per MAR PMD: Adaniel Present on Admission - Present on Admission Any Indicators Present on Admission: No Review of Systems - Review of Systems Review of Systems: As per HPI otherwise negative Past Patient History - Infectious Disease Hx of Infectious Diseases: None - Tetanus Immunizations Tetanus Immunization: Unknown - Past Social History Smoking Status: Never Smoked - CARDIAC Hx Cardiac Disorders: Yes Hx Hypertension: Yes Hx Peripheral Vascular Disease: Yes (RIGHT LEG 02-06-14) - PULMONARY Hx Respiratory Disorders: Yes Hx Pulmonary Embolism: Yes - NEUROLOGICAL Hx Neurological Disorder: No - HEENT Hx HEENT Problems: No (WEARS RX GLASSES) - RENAL Hx Chronic Kidney Disease: No - ENDOCRINE/METABOLIC Hx Endocrine Disorders: Yes Hx Diabetes Mellitus Type 2: Yes - HEMATOLOGICAL/ONCOLOGICAL Hx Blood Disorders: No - INTEGUMENTARY Hx Dermatological Problems: No - MUSCULOSKELETAL/RHEUMATOLOGICAL Hx Musculoskeletal Disorders: Yes Hx Falls: Yes - GASTROINTESTINAL Hx Gastrointestinal Disorders: No - GENITOURINARY/GYNECOLOGICAL Hx Genitourinary Disorders: No - PSYCHIATRIC Hx Psychophysiologic Disorder: No Hx Depression: No Hx Emotional Abuse: No Hx Physical Abuse: No Hx Substance Use: No - SURGICAL HISTORY Hx Surgeries: No - ANESTHESIA Hx Anesthesia: No Meds Allergies/Adverse Reactions: Allergies Allergy/AdvReac Type Severity Reaction Status Date / Time shellfish derived Allergy ANAPHYLAXIS Verified 01/13/17 11:16 Physical Exam - Constitutional Appears: Non-toxic, No Acute Distress - Head Exam Head Exam: ATRAUMATIC, NORMAL INSPECTION, NORMOCEPHALIC - Eye Exam Eye Exam: EOMI, Normal appearance, PERRL Pupil Exam: NORMAL ACCOMODATION, PERRL - ENT Exam ENT Exam: Mucous Membranes Moist, Normal Exam - Neck Exam Neck exam: Positive for: Normal Inspection - Respiratory Exam Respiratory Exam: Clear to Auscultation Bilateral, NORMAL BREATHING PATTERN. absent: Accessory Muscle Use, Chest Wall Tenderness, Decreased Breath Sounds, Prolonged Expiratory Phase, Rales, Rhonchi, Wheezes, Respiratory Distress, Stridor - Cardiovascular Exam Cardiovascular Exam: REGULAR RHYTHM, RRR, +S1, +S2. absent: Bradycardia, Tachycardia, Clicks, Diastolic murmur, Gallop, Irregular Rhythm, JVD, Rubs, +S4 , Systolic Murmur - GI/Abdominal Exam GI & Abdominal Exam: Normal Bowel Sounds, Soft. absent: Bruit, Diminished Bowel Sounds, Distended, Firm, Guarding, Hernia, Hyperactive Bowel Sounds, Hypoactive Bowel Sounds, Mass, Organomegaly, Pulsatile Mass, Rebound, Rigid, Tenderness - Exam Exam: Scrotal Swelling (Firm mass adhered to right side of scrotal wall with no overlying erythema or drainage appreciated), Testicular Tenderness (TTP on right side of scrotum over previously described mass). absent: Circumcision, NORMAL INSPECTION, Uretheral Discharge, Testicular Vertical Lie, Bladder Distension External exam: Swelling (Right scrotal wall swelling). absent: Ecchymosis, Erythema, Lacerations, Lesions, NORMAL EXTERNAL EXAM - Extremities Exam Extremities exam: Positive for: full ROM, normal capillary refill, normal inspection, pedal pulses present. Negative for: calf tenderness, joint swelling , pedal edema, tenderness - Back Exam Back exam: FULL ROM, NORMAL INSPECTION. absent: CVA tenderness (L), CVA tenderness (R), muscle spasm, paraspinal tenderness, rash noted, tenderness, vertebral tenderness - Neurological Exam Neurological exam: Alert, CN II-XII Intact, Oriented x3 - Psychiatric Exam Psychiatric exam: Normal Affect, Normal Mood - Skin Skin Exam: Dry, Intact, Normal Color, Warm Results - Vital Signs Recent Vital Signs: Last Vital Signs Temp 98.4 F 09/02/17 02:48 Pulse 88 09/02/17 02:48 Resp 18 09/02/17 02:48 BP 125/82 09/02/17 02:48 Pulse Ox 100 09/02/17 02:48 - Labs Result Diagrams: 09/01/17 22:30 09/01/17 22:30 Assessment & Plan - Assessment and Plan (Free Text) Assessment: 42 year old AA male with a past medical history significant for PE approximately 5 years ago on Eliquis and DM2 who presents with two days of right sided scrotal swelling and tenderness that has been progressively worsening since its onset. Patient found to have findings consistent with scrotal cellulitis and phlegmon/early abscess on both testicular ultrasound and CT abdomen/pelvis. Patient was also found to have leukocytosis of 15 on CBC with a lactate of 2.3 and a code sepsis was called at 2301. Patient was given one dose of IV Vancomycin and Zosyn with IV fluids totaling 4000cc of normal saline. Plan: 1. Scrotal Cellulitis with Underlying Abscess -CT Abdomen/Pelvis and Testicular U/S both showing findings consistent with scrotal cellulitis and abscess measuring 4.4 x 2.4 x 3.6 cm within right scrotal wall -IV Vancomycin and Zosyn given empirically in ED -IV Zosyn 3.375mg Q6H -NS at 100mls/hr -Zofran 4mg IVP Q4H PRN for N/V -Morphine 2mg IVP Q4H PRN for pain control -Daily CBC to trend leukocytosis -Blood and Urine Cultures pending -ID and Urology consulted 2. DM2 -SSI and Accuchecks ACHS -Heart Healthy Moderate Carbohydrate Consistent Diet 3. History of PE -Continue home Eliquis GI Prophylaxis: Protonix DVT Prophylaxis: SCD's Patient seen and case discussed with attending, Dr. Bright. - Date & Time Date: 09/02/17 Time: 03:31 Decision To Admit - Pt Status Changed To: Hospital Disposition Of: Inpatient Admission - Admit Certification Admit to Inpatient:: After my assessment, the patient will require hospitalization for at least two midnights. This is because of the severity of symptoms shown, intensity of services needed, and/or the medical risk in this patient being treated as an outpatient. - . Bed Request Type: Med/Surg <Venkata Bright - Last Filed: 09/02/17 08:23> Results - Vital Signs Recent Vital Signs: Last Vital Signs Temp 98.4 F 09/02/17 02:48 Pulse 88 09/02/17 02:48 Resp 18 09/02/17 04:08 BP 125/82 09/02/17 02:48 Pulse Ox 100 09/02/17 02:48 - Labs Result Diagrams: 09/02/17 05:30 09/02/17 05:30 Labs: Laboratory Results - last 24 hr 09/02/17 09/02/17 09/02/17 05:30 05:30 05:30 WBC 13.2 H RBC 4.78 Hgb 12.6 L D Hct 37.8 L MCV 79.1 L MCH 26.4 MCHC 33.3 RDW 13.2 Plt Count 264 MPV 10.5 Gran % 71.1 H Lymph % (Auto) 19.2 L [place] % (Auto) 7.2 H Eos % (Auto) 2.0 Baso % (Auto) 0.5 Gran # 9.40 H Lymph # 2.5 [place] # 1.0 H Eos # 0.3 Baso # 0.06 PT 14.1 H INR 1.22 H APTT 33.2 Sodium 140 Potassium 4.0 Chloride 106 Carbon Dioxide 25 Anion Gap 14 BUN 8 Creatinine 0.6 L Est GFR ( Amer) > 60 Est GFR (Non-Af Amer) > 60 POC Glucose (mg/dL) Random Glucose 256 H Calcium 8.2 L Total Bilirubin 0.5 AST 16 L ALT 25 Alkaline Phosphatase 86 Total Protein 6.0 Albumin 3.1 Globulin 2.9 Albumin/Globulin Ratio 1.1 09/02/17 07:33 WBC RBC Hgb Hct MCV MCH MCHC RDW Plt Count MPV Gran % Lymph % (Auto) [place] % (Auto) Eos % (Auto) Baso % (Auto) Gran # Lymph # [place] # Eos # Baso # PT INR APTT Sodium Potassium Chloride Carbon Dioxide Anion Gap BUN Creatinine Est GFR ( Amer) Est GFR (Non-Af Amer) POC Glucose (mg/dL) 207 H Random Glucose Calcium Total Bilirubin AST ALT Alkaline Phosphatase Total Protein Albumin Globulin Albumin/Globulin Ratio Assessment & Plan - Assessment and Plan (Free Text) Plan: discussed w/ resident at length went over meds labs tests xrays orders plans consults reviewed
[2017-09-02] MEDS: Morphine 2 mg/ml ISec IVP PRN ×4 (04:17→21:03)
[2017-09-02 06:11] LABS: BASO # 0.06 K/mm3 (0.0-2.0); BASO % 0.5 % (0.0-3.0); EOS # 0.3 (0.0-0.7); GRAN # 9.4 (1.4-6.5); GRAN % 71.1 % (50.0-68.0); LYMPH # 2.5 (1.2-3.4); LYMPH % 19.2 % (22.0-35.0); MEAN CELL VOLUME 79.1 fl (80.0-105.0); MEAN CORPUSCULAR HEMOGLOBIN 26.4 pg (25.0-35.0); MEAN CORPUSCULAR HGB CONC 33.3 g/dl (31.0-37.0); MEAN PLATELET VOLUME 10.5 fl (7.0-11.0); MONO % 7.2 % (1.0-6.0); RBC 4.78 10^6/uL (3.5-6.1); RED CELL DISTRIBUTION WIDTH 13.2 % (11.5-14.5); WHITE BLOOD COUNT 13.2 10^3/ul (4.5-11.0)
[2017-09-02 06:26] LABS: INR 1.22 (0.93-1.08); PARTIAL THROMBOPLASTIN TIME 33.2 Seconds (25.1-36.5); PROTHROMBIN TIME 14.1 SECONDS (9.4-12.5)
[2017-09-02 06:28] LABS: HEMOGLOBIN 12.6 g/dL (14.0-18.0)
[2017-09-02] MEDS: Pantoprazole 40 mg EC Tab PO SCH (06:57)
[2017-09-02] MEDS: Piperacillin/Tazobact 3.375 gm 100 ML IVPB SCH ×4 (07:05→23:11)
[2017-09-02] MEDS ORDERED: Oxycodone/Acetaminophen 5/325 mg Tab PO PRN (07:12)
[2017-09-02 07:19] LABS: ALB/GLOB RATIO 1.1 (1.1-1.8); ALBUMIN 3.1 g/dL (3.0-4.8); ALT/SGPT 25 U/L (7-56); AST/SGOT 16 U/L (17-59); BLOOD UREA NITROGEN 8 mg/dL (7-21); CALCIUM 8.2 mg/dL (8.4-10.5); GFR AFRICAN-AMERICAN > 60; GFR NON-AFRICAN AMERICAN > 60
[2017-09-02] MEDS: Insulin Reg-LOW-Coverage SC SCH ×4 (08:28→21:10)
[2017-09-02] MEDS: Vancomycin 1gm in NS 250ml 1 GM/250 ML BAG IVPB SCH ×2 (09:05→21:04)
[2017-09-02] MEDS ORDERED: Vancomycin 1gm in NS 250ml 1 GM/250 ML BAG IVPB SCH (10:00)
--- NOTE | 2017-09-02 10:52 | CP.PCM.CON ---
<Masha Montilla - Last Filed: 09/02/17 13:04> History of Present Illness - History of Present Illness History of Present Illness: PGY2 Medicine Resident Consult note for GI 42 year old male PMHx PE 2013, RLE DVT 2013 on eliquis 5mg, and DM2 presented to ED with 2 day history of scrotal pain and swelling. Patient stated he noticed a "pimple" in his R scrotal area 2 days ago which progressively became worse to the point that he was unable to ambulate secondary to pain. Patient has had abscesses in the past [last was in December 2016 of L buttock which was seen at [facility] ED and had I&D with packing] and reports having "boils" in his groin at times. He decided to come in as pain was unbearable and the swelling in his groin had worsened. He denied any associated fever, chills, abd pain, change in weight, change in appetite, nausea, vomiting, change in bowel habits, hematochezia, and melena. He denied any recent travel or sick contacts. Last meal was this AM which patient tolerated an last BM was day before which was unchanged from regular. 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 absent: Chills, Fever - EENT Eyes: As Per HPI. absent: Blurred Vision Ears: As Per HPI. absent: Dizziness Nose/Mouth/Throat: As Per HPI - Cardiovascular Cardiovascular: As Per HPI. absent: Chest Pain, Dyspnea - Respiratory Respiratory: As Per HPI. absent: Cough, Dyspnea - Gastrointestinal Gastrointestinal: As Per HPI. absent: Abdominal Pain, Constipation, Cramping, Diarrhea, Dysphagia, Hematochezia, Loose Stools, Melena, Nausea, Vomiting - Genitourinary Genitourinary: As Per HPI. absent: Dysuria - Reproductive: Male Additional comments: scrotal swelling - Musculoskeletal Musculoskeletal: As Per HPI. absent: Back Pain - Neurological Neurological: As Per HPI. absent: Dizziness, Numbness, Tingling Past Patient History - Infectious Disease Hx of Infectious Diseases: None - Tetanus Immunizations Tetanus Immunization: Unknown - Past Social History Smoking Status: Never Smoked - CARDIAC Hx Cardiac Disorders: Yes Hx Hypertension: Yes Hx Peripheral Vascular Disease: Yes (RIGHT LEG 02-06-14) - PULMONARY Hx Respiratory Disorders: Yes Hx Pulmonary Embolism: Yes - NEUROLOGICAL Hx Neurological Disorder: No - HEENT Hx HEENT Problems: No (WEARS RX GLASSES) - RENAL Hx Chronic Kidney Disease: No - ENDOCRINE/METABOLIC Hx Endocrine Disorders: Yes Hx Diabetes Mellitus Type 2: Yes - HEMATOLOGICAL/ONCOLOGICAL Hx Blood Disorders: No - INTEGUMENTARY Hx Dermatological Problems: No - MUSCULOSKELETAL/RHEUMATOLOGICAL Hx Musculoskeletal Disorders: Yes Hx Falls: Yes - GASTROINTESTINAL Hx Gastrointestinal Disorders: No - GENITOURINARY/GYNECOLOGICAL Hx Genitourinary Disorders: No - PSYCHIATRIC Hx Psychophysiologic Disorder: No Hx Depression: No Hx Emotional Abuse: No Hx Physical Abuse: No Hx Substance Use: No - SURGICAL HISTORY Hx Surgeries: No - ANESTHESIA Hx Anesthesia: No Meds Allergies/Adverse Reactions: Allergies Allergy/AdvReac Type Severity Reaction Status Date / Time shellfish derived Allergy ANAPHYLAXIS Verified 01/13/17 11:16 - Medications Medications: Current Medications Sodium Chloride (Sodium Chloride 0.9%) 1,000 mls @ 100 mls/hr IV .Q10H AKIL Piperacillin Sod/Tazobactam Sod (Zosyn 3.375 In Ns 100ml) 100 mls @ 200 mls/hr IVPB Q6 AKIL PRN Reason: Protocol Stop: 09/09/17 06:01 Last Admin: 09/02/17 07:05 Dose: 200 mls/hr Vancomycin HCl (Vancomycin 1gm) 1 gm in 250 mls @ 167 mls/hr IVPB Q12 AKIL PRN Reason: Protocol Last Admin: 09/02/17 09:05 Dose: 167 mls/hr Insulin Human Regular (Humulin R Low) 0 units SC ACHS AKIL PRN Reason: Protocol Last Admin: 09/02/17 08:28 Dose: 2 units Morphine Sulfate (Morphine) 2 mg IVP Q4H PRN PRN Reason: Pain, moderate (4-7) Last Admin: 09/02/17 09:05 Dose: 2 mg Ondansetron HCl (Zofran Inj) 4 mg IVP Q4H PRN PRN Reason: Nausea/Vomiting Oxycodone/Acetaminophen (Percocet 5/325 Mg Tab) 1 tab PO Q4H PRN PRN Reason: Pain, moderate (4-7) Stop: 09/05/17 07:13 Pantoprazole Sodium (Protonix Ec Tab) 40 mg PO 0600 AKIL Last Admin: 09/02/17 06:57 Dose: Not Given Physical Exam - Constitutional Appears: Non-toxic, No Acute Distress - Head Exam Head Exam: ATRAUMATIC, NORMAL INSPECTION, NORMOCEPHALIC - Eye Exam Eye Exam: EOMI, Normal appearance, PERRL. absent: Conjunctival injection, Scleral icterus Pupil Exam: NORMAL ACCOMODATION, PERRL - ENT Exam ENT Exam: Mucous Membranes Moist - Neck Exam Neck exam: Positive for: Full Rom, Normal Inspection - Respiratory Exam Respiratory Exam: Clear to Auscultation Bilateral, NORMAL BREATHING PATTERN. absent: Rales, Rhonchi, Wheezes - Cardiovascular Exam Cardiovascular Exam: REGULAR RHYTHM, RRR, +S1, +S2 - GI/Abdominal Exam GI & Abdominal Exam: Normal Bowel Sounds, Soft. absent: Distended, Firm, Guarding, Rigid, Tenderness - Exam Exam: Scrotal Swelling, Testicular Tenderness - Extremities Exam Extremities exam: Positive for: normal capillary refill, pedal pulses present. Negative for: pedal edema - Neurological Exam Neurological exam: Alert, CN II-XII Intact, Oriented x3 - Psychiatric Exam Psychiatric exam: Normal Affect, Normal Mood - Skin Skin Exam: Dry, Warm Results - Vital Signs Recent Vital Signs: Last Vital Signs Temp 98.1 F 09/02/17 07:30 Pulse 89 09/02/17 07:30 Resp 20 09/02/17 07:30 BP 129/84 09/02/17 07:30 Pulse Ox 96 09/02/17 07:30 - Labs Result Diagrams: 09/02/17 05:30 09/02/17 05:30 Labs: Laboratory Results - last 24 hr 0109/02/17 09/02/17 05:30 05:30 05:30 WBC 13.2 H RBC 4.78 Hgb 12.6 L D Hct 37.8 L MCV 79.1 L MCH 26.4 MCHC 33.3 RDW 13.2 Plt Count 264 MPV 10.5 Gran % 71.1 H Lymph % (Auto) 19.2 L [place] % (Auto) 7.2 H Eos % (Auto) 2.0 Baso % (Auto) 0.5 Gran # 9.40 H Lymph # 2.5 [place] # 1.0 H Eos # 0.3 Baso # 0.06 PT 14.1 H INR 1.22 H APTT 33.2 Sodium 140 Potassium 4.0 Chloride 106 Carbon Dioxide 25 Anion Gap 14 BUN 8 Creatinine 0.6 L Est GFR ( Amer) > 60 Est GFR (Non-Af Amer) > 60 POC Glucose (mg/dL) Random Glucose 256 H Calcium 8.2 L Total Bilirubin 0.5 AST 16 L ALT 25 Alkaline Phosphatase 86 Total Protein 6.0 Albumin 3.1 Globulin 2.9 Albumin/Globulin Ratio 1.1 09/02/17 07:33 WBC RBC Hgb Hct MCV MCH MCHC RDW Plt Count MPV Gran % Lymph % (Auto) [place] % (Auto) Eos % (Auto) Baso % (Auto) Gran # Lymph # [place] # Eos # Baso # PT INR APTT Sodium Potassium Chloride Carbon Dioxide Anion Gap BUN Creatinine Est GFR ( Amer) Est GFR (Non-Af Amer) POC Glucose (mg/dL) 207 H Random Glucose Calcium Total Bilirubin AST ALT Alkaline Phosphatase Total Protein Albumin Globulin Albumin/Globulin Ratio Assessment & Plan - Assessment and Plan (Free Text) Assessment: 42 year old male PMHx PE 2013, RLE DVT 2013 on eliquis 5mg, and DM2 presented to ED with 2 day history of scrotal pain and swelling. Plan: - CT Abd/pelvis w/ contrast with IV: 1cm incidental splenic lesion - f/u MRI abd/pelvis w/ and w/o contrast - CT Abdomen/Pelvis and testicular U/S both showing findings consistent with scrotal cellulitis and abscess measuring 4.4 x 2.4 x 3.6 cm within right scrotal wall - continue IV abx and pain management as per primary - f/u blood and urine cultures GI will continue to follow Discussed with Dr. Chester Montilla PGY2 <Alex Briggs - Last Filed: 09/02/17 15:52> Meds - Medications Medications: Current Medications Sodium Chloride (Sodium Chloride 0.9%) 1,000 mls @ 100 mls/hr IV .Q10H AKIL Piperacillin Sod/Tazobactam Sod (Zosyn 3.375 In Ns 100ml) 100 mls @ 200 mls/hr IVPB Q6 AKIL PRN Reason: Protocol Stop: 09/09/17 06:01 Last Admin: 09/02/17 11:13 Dose: 200 mls/hr Vancomycin HCl (Vancomycin 1gm) 1 gm in 250 mls @ 167 mls/hr IVPB Q12 AKIL PRN Reason: Protocol Last Admin: 09/02/17 09:05 Dose: 167 mls/hr Insulin Human Regular (Humulin R Low) 0 units SC ACHS AKIL PRN Reason: Protocol Last Admin: 09/02/17 12:12 Dose: 3 units Morphine Sulfate (Morphine) 2 mg IVP Q4H PRN PRN Reason: Pain, moderate (4-7) Last Admin: 09/02/17 09:05 Dose: 2 mg Ondansetron HCl (Zofran Inj) 4 mg IVP Q4H PRN PRN Reason: Nausea/Vomiting Oxycodone/Acetaminophen (Percocet 5/325 Mg Tab) 1 tab PO Q4H PRN PRN Reason: Pain, moderate (4-7) Stop: 09/05/17 07:13 Pantoprazole Sodium (Protonix Ec Tab) 40 mg PO 0600 [facility] Last Admin: 09/02/17 06:57 Dose: Not Given Results - Vital Signs Recent Vital Signs: Last Vital Signs Temp 98.1 F 09/02/17 07:30 Pulse 89 09/02/17 07:30 Resp 20 09/02/17 07:30 BP 129/84 09/02/17 07:30 Pulse Ox 96 09/02/17 07:30 - Labs Result Diagrams: 09/02/17 05:30 09/02/17 05:30 Labs: Laboratory Results - last 24 hr 09/02/17 09/02/17 09/02/17 05:30 05:30 05:30 WBC 13.2 H RBC 4.78 Hgb 12.6 L D Hct 37.8 L MCV 79.1 L MCH 26.4 MCHC 33.3 RDW 13.2 Plt Count 264 MPV 10.5 Gran % 71.1 H Lymph % (Auto) 19.2 L [place] % (Auto) 7.2 H Eos % (Auto) 2.0 Baso % (Auto) 0.5 Gran # 9.40 H Lymph # 2.5 [place] # 1.0 H Eos # 0.3 Baso # 0.06 PT 14.1 H INR 1.22 H APTT 33.2 Sodium 140 Potassium 4.0 Chloride 106 Carbon Dioxide 25 Anion Gap 14 BUN 8 Creatinine 0.6 L Est GFR ( Amer) > 60 Est GFR (Non-Af Amer) > 60 POC Glucose (mg/dL) Random Glucose 256 H Hemoglobin A1c Calcium 8.2 L Total Bilirubin 0.5 AST 16 L ALT 25 Alkaline Phosphatase 86 Total Protein 6.0 Albumin 3.1 Globulin 2.9 Albumin/Globulin Ratio 1.1 Procalcitonin 09/02/17 09/02/17 09/02/17 05:30 07:33 07:50 WBC RBC Hgb Hct MCV MCH MCHC RDW Plt Count MPV Gran % Lymph % (Auto) [place] % (Auto) Eos % (Auto) Baso % (Auto) Gran # Lymph # [place] # Eos # Baso # PT INR APTT Sodium Potassium Chloride Carbon Dioxide Anion Gap BUN Creatinine Est GFR ( Amer) Est GFR (Non-Af Amer) POC Glucose (mg/dL) 207 H Random Glucose Hemoglobin A1c 14.4 H Calcium Total Bilirubin AST ALT Alkaline Phosphatase Total Protein Albumin Globulin Albumin/Globulin Ratio Procalcitonin 0.13 L 09/02/17 11:41 WBC RBC Hgb Hct MCV MCH MCHC RDW Plt Count MPV Gran % Lymph % (Auto) [place] % (Auto) Eos % (Auto) Baso % (Auto) Gran # Lymph # [place] # Eos # Baso # PT INR APTT Sodium Potassium Chloride Carbon Dioxide Anion Gap BUN Creatinine Est GFR ( Amer) Est GFR (Non-Af Amer) POC Glucose (mg/dL) 271 H Random Glucose Hemoglobin A1c Calcium Total Bilirubin AST ALT Alkaline Phosphatase Total Protein Albumin Globulin Albumin/Globulin Ratio Procalcitonin Attending/Attestation - Attestation I have personally seen and examined this patient.: Yes I have fully participated in the care of the patient.: Yes I have reviewed all pertinent clinical information: Yes Notes (Text): 09/02/17 15:50 42 year old male with h/o DVT/PE on eliquis, DM admitted with scrotal abscess, incidentally found splenic lesion. 1. Splenic lesion 2. Scrotal abscess Plan: -uncertain etiology of splenic lesion, ddx includes cyst, hemangioma, abscess, or less likely malignant lesion -reocmmend blood cultures to eval for bacteremia -recommend MRI abdomen per radiology -further recs pending that
--- NOTE | 2017-09-02 11:53 | PCM.SEPTIC ---
Sepsis Progress Note - Reassessment Type Date of Evaluation: 09/02/17 Time of Evaluation: 07:30 Reassessment Type: Non-invasive reassessment - Non Invasive Reassessment Were the most recent vital sign reviewed: Yes Vital Sign (Latest): Temp Pulse Resp BP Pulse Ox 98.1 F 89 20 129/84 96 09/02/17 07:30 09/02/17 07:30 09/02/17 07:30 09/02/17 07:30 09/02/17 07:30 Cardiovascular: Yes: Regular Rate, Rhythm Respiratory: Yes: Normal Breath Sounds Capillary Refill: Normal (Less than 2 sec) Skin: Normal Color
--- NOTE | 2017-09-02 12:30 | CARD ---
APPROVED REPORT EKG Measurement Heart [id number] <Conclusion> Sinus tachycardia Left axis deviation Minimal voltage criteria for LVH, may be normal variant Abnormal ECG
--- NOTE | 2017-09-02 13:30 | CP.PCM.CON ---
History of Present Illness - History of Present Illness History of Present Illness: 42 year old male with PMH of pulmonary embolism, DM, morbid obesity with BMI 41 came in to [facility] complaining of pain and swelling of the scrotal area f or the past 2-3 days. The patient states he occasionally gets boils around his scrotal area which burst spontaneously and heal. He denies animal contacts, no soaking of his genital area in water, denies fever or chills , no nausea or vomiting, no chest pain, no SOB, no headache or dizziness, no abdominal pain, no cough or colds, no diarrhea, no dysuria. Infectious diseases consult is requested to further evaluate and manage. Review of Systems - Review of Systems All systems: reviewed and no additional remarkable complaints except (as per HPI ) Past Patient History - Infectious Disease Hx of Infectious Diseases: None - Tetanus Immunizations Tetanus Immunization: Unknown - Past Social History Smoking Status: Never Smoked - CARDIAC Hx Cardiac Disorders: Yes Hx Hypertension: Yes Hx Peripheral Vascular Disease: Yes (RIGHT LEG 02-06-14) - PULMONARY Hx Respiratory Disorders: Yes Hx Pulmonary Embolism: Yes - NEUROLOGICAL Hx Neurological Disorder: No - HEENT Hx HEENT Problems: No (WEARS RX GLASSES) - RENAL Hx Chronic Kidney Disease: No - ENDOCRINE/METABOLIC Hx Endocrine Disorders: Yes Hx Diabetes Mellitus Type 2: Yes - HEMATOLOGICAL/ONCOLOGICAL Hx Blood Disorders: No - INTEGUMENTARY Hx Dermatological Problems: No - MUSCULOSKELETAL/RHEUMATOLOGICAL Hx Musculoskeletal Disorders: Yes Hx Falls: Yes - GASTROINTESTINAL Hx Gastrointestinal Disorders: No - GENITOURINARY/GYNECOLOGICAL Hx Genitourinary Disorders: No - PSYCHIATRIC Hx Psychophysiologic Disorder: No Hx Depression: No Hx Emotional Abuse: No Hx Physical Abuse: No Hx Substance Use: No - SURGICAL HISTORY Hx Surgeries: No - ANESTHESIA Hx Anesthesia: No Meds Allergies/Adverse Reactions: Allergies Allergy/AdvReac Type Severity Reaction Status Date / Time shellfish derived Allergy ANAPHYLAXIS Verified 01/13/17 11:16 - Medications Medications: Current Medications Apixaban (Eliquis) 5 mg PO BID AKIL PRN Reason: Protocol Sodium Chloride (Sodium Chloride 0.9%) 1,000 mls @ 100 mls/hr IV .Q10H AKIL Piperacillin Sod/Tazobactam Sod (Zosyn 3.375 In Ns 100ml) 100 mls @ 200 mls/hr IVPB Q6 AKIL PRN Reason: Protocol Stop: 09/09/17 06:01 Vancomycin HCl (Vancomycin 1gm) 1 gm in 250 mls @ 167 mls/hr IVPB Q12 AKIL PRN Reason: Protocol Insulin Human Regular (Humulin R Low) 0 units SC ACHS AKIL PRN Reason: Protocol Morphine Sulfate (Morphine) 2 mg IVP Q4H PRN PRN Reason: Pain, moderate (4-7) Last Admin: 09/02/17 04:17 Dose: 2 mg Ondansetron HCl (Zofran Inj) 4 mg IVP Q4H PRN PRN Reason: Nausea/Vomiting Pantoprazole Sodium (Protonix Ec Tab) 40 mg PO 0600 [facility] Physical Exam - Constitutional Appears: Non-toxic - Head Exam Head Exam: NORMAL INSPECTION - ENT Exam ENT Exam: Mucous Membranes Moist - Neck Exam Neck exam: Negative for: Lymphadenopathy, Meningismus - Respiratory Exam Respiratory Exam: Decreased Breath Sounds - Cardiovascular Exam Cardiovascular Exam: +S1, +S2 - GI/Abdominal Exam GI & Abdominal Exam: Soft. absent: Tenderness - Exam Exam: Scrotal Swelling (with erythema and tenderness noted, no fluctuance noted) Results - Vital Signs Recent Vital Signs: Last Vital Signs Temp 98.4 F 09/02/17 02:48 Pulse 88 09/02/17 02:48 Resp 18 09/02/17 04:08 BP 125/82 09/02/17 02:48 Pulse Ox 100 09/02/17 02:48 - Labs Result Diagrams: 09/02/17 05:30 09/02/17 05:30 Labs: Laboratory Results - last 24 hr 09/02/17 09/02/17 05:30 05:30 WBC 13.2 H RBC 4.78 Hgb 12.6 L D Hct 37.8 L MCV 79.1 L MCH 26.4 MCHC 33.3 RDW 13.2 Plt Count 264 MPV 10.5 Gran % 71.1 H Lymph % (Auto) 19.2 L [place] % (Auto) 7.2 H Eos % (Auto) 2.0 Baso % (Auto) 0.5 Gran # 9.40 H Lymph # 2.5 [place] # 1.0 H Eos # 0.3 Baso # 0.06 PT 14.1 H INR 1.22 H APTT 33.2 Assessment & Plan - Assessment and Plan (Free Text) Plan: Assessment Sepsis due to scrotal cellulitis pulmonary embolism DM morbid obesity with BMI 41 Plan Started the patient on Vancomycin and Zosyn pending blood cx; will order warm compress over the scrotal area and will monitor clinical response
[2017-09-02] MEDS ORDERED: Gadodiamide 287 MG/ML VIAL (20ML) IV ONE (14:20)
--- NOTE | 2017-09-02 16:31 | MRI ---
PROCEDURE: MRI pelvis with and without contrast HISTORY: abdominal pain COMPARISON: Scrotal ultrasound dated 09/01/2017. TECHNIQUE: Multiplanar, multi sequence MR images of the pelvis were obtained following administration of intravenous gadolinium contrast. 20 cc of Omniscan FINDINGS: BOWEL: Partially visualized rectosigmoid colon is grossly unremarkable. LYMPH NODES: No lymphadenopathy. BLADDER: Unremarkable. PROSTATE: Unremarkable. FREE FLUID: None. PELVIC BONES: Grossly unremarkable. OTHER FINDINGS: There is a well-circumscribed fluid collection in the right side of the scrotum above the level of the right testicle. The this measures 29 x 48 x 32 mm. There is extensive surrounding enhancement consistent with inflammation. The finding most likely represents a scrotal abscess. This was also identified on the recent ultrasound. There is also a small hydrocele visualized inferior to the right testicle. The left side of the scrotum is unremarkable. IMPRESSION: Fluid collection in the right scrotum with surrounding inflammatory changes. Findings consistent with abscess.
--- NOTE | 2017-09-02 16:38 | MRI ---
PROCEDURE: MRI Abdomen with and without contrast HISTORY: Follow-up splenic lesion COMPARISON: None available. TECHNIQUE: Multisequence, multiplanar MR images of the abdomen with and without gadolinium contrast enhancement. 20 cc of Omniscan FINDINGS: LIVER: Unremarkable. GALLBLADDER: Unremarkable. SPLEEN: There is a small lesion along the medial border of the spleen measuring 1 cm in diameter. This is poorly defined on MRI and is seen is an area of slightly increased signal intensity on T2 weighted images 23 series 3 and 4. The findings are nonspecific and of doubtful clinical significance. There are no enhancing lesions. PANCREAS: Unremarkable. ADRENALS: Unremarkable. KIDNEYS: Unremarkable. AORTA: No aneurysm. ASCITES: None. PERITONEUM: Unremarkable. LYMPH NODES: Unremarkable. OTHER FINDINGS: None. IMPRESSION: Small 1 cm splenic lesion. Doubtful clinical significance. The study is otherwise unremarkable
[2017-09-02] MEDS: Sodium Chloride 0.9% 1,000 ML IV SCH ×2 (21:05→23:12)
[2017-09-03] MEDS: Piperacillin/Tazobact 3.375 gm 100 ML IVPB SCH ×4 (05:26→23:00)
[2017-09-03] MEDS: Pantoprazole 40 mg EC Tab PO SCH (05:26)
[2017-09-03 06:35] LABS: BASO # 0.08 K/mm3 (0.0-2.0); BASO % 0.6 % (0.0-3.0); EOS # 0.3 (0.0-0.7); EOS % 1.9 % (1.5-5.0); GRAN # 10.47 (1.4-6.5); GRAN % 77.1 % (50.0-68.0); HEMOGLOBIN 12.9 g/dL (14.0-18.0); LYMPH # 1.6 (1.2-3.4); LYMPH % 11.5 % (22.0-35.0); MEAN CORPUSCULAR HEMOGLOBIN 27.1 pg (25.0-35.0); MEAN CORPUSCULAR HGB CONC 34.3 g/dl (31.0-37.0); MEAN PLATELET VOLUME 10.6 fl (7.0-11.0); MONO # 1.2 (0.1-0.6); MONO % 8.9 % (1.0-6.0); RBC 4.76 10^6/uL (3.5-6.1); RED CELL DISTRIBUTION WIDTH 13.3 % (11.5-14.5); WHITE BLOOD COUNT 13.6 10^3/ul (4.5-11.0)
--- NOTE | 2017-09-03 07:17 | CP.PCM.PN ---
<Teo Andrade - Last Filed: 09/03/17 09:28> Subjective - Date & Time of Evaluation Date of Evaluation: 09/03/17 Time of Evaluation: 06:45 - Subjective Subjective: PGY5 GI Fellow Progress Note Patient seen and examined bedside this morning. The patient states that he continues to have scrotal pain 2/2 lesion present. Denies any abdominal pain, nausea, vomiting, recent weight loss, change in bowel habits or passage of hematochezia/melena. 12 system ROS performed and negative except where stated. Objective - Vital Signs/Intake and Output Vital Signs (last 24 hours): Temp Pulse Resp BP Pulse Ox 98.1 F 92 H 20 140/94 H 98 09/02/17 16:00 09/02/17 16:00 09/02/17 16:00 09/02/17 16:00 09/02/17 16:00 Intake and Output: 09/03/17 09/03/17 06:59 18:59 Intake Total 960 Balance 960 - Medications Medications: Current Medications Sodium Chloride (Sodium Chloride 0.9%) 1,000 mls @ 100 mls/hr IV .Q10H AKIL Last Admin: 09/02/17 23:12 Dose: Not Given Piperacillin Sod/Tazobactam Sod (Zosyn 3.375 In Ns 100ml) 100 mls @ 200 mls/hr IVPB Q6 AKIL PRN Reason: Protocol Stop: 09/09/17 06:01 Last Admin: 09/03/17 05:26 Dose: 200 mls/hr Vancomycin HCl (Vancomycin 1gm) 1 gm in 250 mls @ 167 mls/hr IVPB Q12 AKIL PRN Reason: Protocol Last Admin: 09/02/17 21:04 Dose: 167 mls/hr Insulin Human Regular (Humulin R Low) 0 units SC ACHS AKIL PRN Reason: Protocol Last Admin: 09/02/17 21:10 Dose: 2 units Morphine Sulfate (Morphine) 2 mg IVP Q4H PRN PRN Reason: Pain, moderate (4-7) Last Admin: 09/02/17 21:03 Dose: 2 mg Ondansetron HCl (Zofran Inj) 4 mg IVP Q4H PRN PRN Reason: Nausea/Vomiting Oxycodone/Acetaminophen (Percocet 5/325 Mg Tab) 1 tab PO Q4H PRN PRN Reason: Pain, moderate (4-7) Stop: 09/05/17 07:13 Pantoprazole Sodium (Protonix Ec Tab) 40 mg PO 0600 [facility] Last Admin: 09/03/17 05:26 Dose: 40 mg - Labs Labs: 09/03/17 06:00 09/02/17 05:30 PT 14.1 SECONDS (9.4-12.5) H 09/02/17 05:30 INR 1.22 (0.93-1.08) H 09/02/17 05:30 APTT 33.2 Seconds (25.1-36.5) 09/02/17 05:30 - Constitutional Appears: Non-toxic, No Acute Distress - Eye Exam Eye Exam: EOMI, PERRL - ENT Exam ENT Exam: Mucous Membranes Moist - Respiratory Exam Respiratory Exam: Clear to Ausculation Bilateral. absent: Rales, Rhonchi, Wheezes - Cardiovascular Exam Cardiovascular Exam: RRR, +S1, +S2 - GI/Abdominal Exam GI & Abdominal Exam: Soft, Normal Bowel Sounds. absent: Distended, Firm, Guarding, Rigid, Tenderness, Organomegaly - Extremities Exam Extremities Exam: Normal Inspection. absent: Pedal Edema - Neurological Exam Neurological Exam: Alert, Awake, Oriented x3 - Psychiatric Exam Psychiatric exam: Normal Affect, Normal Mood - Skin Skin Exam: Dry, Warm Assessment and Plan - Assessment and Plan (Free Text) Assessment: Patient is a 42yo male with PMHx significant for DVT/PE, on AC with Xarelto who was admitted with a scrotal abscess and an incidentally discovered splenic lesion. -Splenic lesion -Scrotal abscess Plan: -S/P MRI A/P w and w/o contrast which reveals a 1cm lesion in the spleen -Suspect cystic lesion vs hemangioma or lymphangioma given characteristics on imaging, less likely abscess or malignancy given benign characteristics on imaging -Blood cultures pending -Recommend 6mo-1yr follow up with CT with w/o contrast to evaluate lesion -Pt to have evaluation/drainage with Urology today -On broad spectrum antibiotics with Vanc/Zosyn -Family hx significant for father with rectal ca - diagnosed in mid 70s -No accelerated timeline for colon cancer screening - start at age 45 <Marco Sommer - Last Filed: 09/03/17 09:37> Objective - Vital Signs/Intake and Output Vital Signs (last 24 hours): Temp Pulse Resp BP Pulse Ox 98.1 F 92 H 20 140/94 H 98 09/02/17 16:00 09/02/17 16:00 09/02/17 16:00 09/02/17 16:00 09/02/17 16:00 Intake and Output: 09/03/17 09/03/17 06:59 18:59 Intake Total 960 Balance 960 - Medications Medications: Current Medications Sodium Chloride (Sodium Chloride 0.9%) 1,000 mls @ 100 mls/hr IV .Q10H [facility] Last Admin: 09/02/17 23:12 Dose: Not Given Piperacillin Sod/Tazobactam Sod (Zosyn 3.375 In Ns 100ml) 100 mls @ 200 mls/hr IVPB Q6 AKIL PRN Reason: Protocol Stop: 09/09/17 06:01 Last Admin: 09/03/17 05:26 Dose: 200 mls/hr Vancomycin HCl (Vancomycin 1gm) 1 gm in 250 mls @ 167 mls/hr IVPB Q12 AKIL PRN Reason: Protocol Last Admin: 09/02/17 21:04 Dose: 167 mls/hr Insulin Detemir (Levemir) 10 unit SC HS AKIL Insulin Human Regular (Humulin R Low) 0 units SC ACHS AKIL PRN Reason: Protocol Last Admin: 09/02/17 21:10 Dose: 2 units Morphine Sulfate (Morphine) 2 mg IVP Q4H PRN PRN Reason: Pain, moderate (4-7) Last Admin: 09/02/17 21:03 Dose: 2 mg Ondansetron HCl (Zofran Inj) 4 mg IVP Q4H PRN PRN Reason: Nausea/Vomiting Oxycodone/Acetaminophen (Percocet 5/325 Mg Tab) 1 tab PO Q4H PRN PRN Reason: Pain, moderate (4-7) Stop: 09/05/17 07:13 Pantoprazole Sodium (Protonix Ec Tab) 40 mg PO 0600 [facility] Last Admin: 09/03/17 05:26 Dose: 40 mg - Labs Labs: 09/03/17 06:00 09/03/17 06:00 PT 14.1 SECONDS (9.4-12.5) H 09/02/17 05:30 INR 1.22 (0.93-1.08) H 09/02/17 05:30 APTT 33.2 Seconds (25.1-36.5) 09/02/17 05:30 Attending/Attestation - Attestation I have personally seen and examined this patient.: Yes I have fully participated in the care of the patient.: Yes I have reviewed all pertinent clinical information, including history, physical exam and plan: Yes Notes (Text): 09/03/17 09:33 I have seen and examined patient with GI fellow. No acute events overnight. He denies abdominal pain, nausea, vomiting, fever/chills. Scheduled for operative intervention today for scrotal lesion. DVT/PE on anticoagulation Scrotal abscess Splenic lesion MRI reviewed by me showing 1 cm splenic lesion of unclear significance. No enhancement of lesion to suggest abscess or malignancy. - Diet as tolerated - Continue with antibiotic therapy - Follow up surgical recommendations regarding abscess therapy - Patient should have outpatient screening colonoscopy performed given family history of rectal cancer - Suggest outpatient follow up of splenic lesion with repeat imaging within 6 months to ensure stability of size - No further planned GI intervention, will sign off case. Please reconsult as necessary, thank you.
[2017-09-03 07:45] LABS: ALB/GLOB RATIO 1.1 (1.1-1.8); ALBUMIN 3.3 g/dL (3.0-4.8); ALT/SGPT 22 U/L (7-56); AST/SGOT 18 U/L (17-59); BLOOD UREA NITROGEN 6 mg/dL (7-21); CALCIUM 8.8 mg/dL (8.4-10.5); GFR AFRICAN-AMERICAN > 60; GFR NON-AFRICAN AMERICAN > 60
--- NOTE | 2017-09-03 08:12 | CON ---
DATE: 09/03/2017 PULMONARY CONSULTATION REASON FOR CONSULTATION: Rule out pulmonary nodule. REFERRING PHYSICIAN: Venkata Bright DO HISTORY OF PRESENT ILLNESS: The patient is a 42-year-old male, with past medical history significant for pulmonary embolism (on Eliquis), diabetes mellitus, who presents to [facility] with worsening right-sided scrotal swelling and pain for the past 2 days. In the Emergency Room, the patient was noted to have a scrotal abscess. He was thus admitted for additional evaluation. The patient denies shortness of breath at rest, dyspnea on exertion, cough, and/or sputum production. The patient also denies chest pain, coughing up of blood, or chest pain - made worse with deep respirations. The patient did present to the Emergency Room with low grade fevers (99.2). No history of chills or infectious exposure. No history of night sweats, weight loss or appetite change prior to the above events. No history of leg or calf pains. No history of syncope or diaphoresis. No history of recent travel or trauma. REVIEW OF SYSTEMS: No history of nausea, vomiting or diarrhea. No acute urinary symptoms. No new neurologic or musculoskeletal complaints. Rest of the review of systems negative. ALLERGIES: SHELLFISH. SOCIAL HISTORY: Negative for tobacco. Negative for alcohol. FAMILY HISTORY: No inheritable diseases. HOME MEDICATIONS: Include Glucophage and Eliquis PHYSICAL EXAMINATION: GENERAL: The patient appears very comfortable this morning. He is not short of breath at rest. VITAL SIGNS: (Last noted in the computer): Temperature is 98.1, pulse is 92, respirations are 18, and blood pressure is 140/94. Oxygen saturation on room air is 98%. HEENT: Normocephalic and atraumatic. NECK: No JVD. CARDIOVASCULAR: Positive S1 and S2. No S3 gallop. LUNGS: Clear bilaterally. EXTREMITIES: No clubbing, cyanosis or edema. Calves are nontender to palpation. GASTROINTESTINAL: Abdomen is soft, nontender and nondistended. Bowel sounds are positive. SKIN: + right scrotal abscess. NEUROLOGIC: Exam is limited at the present time. PERTINENT LABORATORY DATA Per the Laboratory Data: CT scan of the abdomen and pelvis was done on 09/01/2017. On the lung windows, there is a questionable tiny pulmonary nodule noted at the right base. In addition, at the left lung base, there appears to be a small scar. There are no other significant abnormalities. CBC: White count of 13.6, hemoglobin of 12.9, hematocrit of 37.6, and platelets of 281,000. IMPRESSION 1. Right scrotal abscess. 2. Sepsis syndrome. 3. Mild anemia. 4. Rule out tiny pulmonary nodules versus scar at the lung bases. PLAN: The patient presents to [facility] with a 2-day history of worsening pain and swelling of his right scrotal area. The patient did present with low grade fevers and a leukocytosis. He was thus admitted for additional evaluation. I did review the CT scan of the abdomen and pelvis. There is a questionable tiny nodule noted at the right base. There is also a questionable scar (tiny) noted at the left base. There are no other significant abnormalities that I can see. I will proceed with a dedicated CT scan of the chest for additional evaluation. At this point in time, the patient offers NO pulmonary symptoms. His lungs are clear on physical exam. Oxygen saturation on room air is 98%. As above, he does have a history of pulmonary embolism, and is maintained on Eliquis. I would continue the workup for his scrotal abscess as per genitourinary. I would continue with the antibiotic coverage as per Infectious Diseases. Input by Dr. Carver is noted. The patient does feel better and is clinically improved. Additional pulmonary intervention will be based on the above results, as well as the clinical status of the patient. I will discuss the above with the attending physician later this morning. Thank you very much for this pulmonary consultation. Edmundo Franco MD [facility]
--- NOTE | 2017-09-03 09:10 | CT ---
PROCEDURE: CT Chest without contrast HISTORY: r/o lung nodules COMPARISON: 02/09/2014 TECHNIQUE: Contiguous axial images were obtained through the chest without intravenous contrast enhancement. Sagittal and coronal reconstructions were performed. Radiation dose (DLP): 722 mGy-cm. This CT exam was performed using one or more of the following dose reduction techniques: Automated exposure control, adjustment of the mA and/or kV according to patient size, and/or use of iterative reconstruction technique. FINDINGS: LUNGS: There is a small 3 mm nodule in the right middle lobe on image 61 and a small 4 mm nodule along the right major fissure image 47. These findings are unchanged and of doubtful clinical significance. There are no other nodules seen. There are no infiltrates MEDIASTINUM: Unremarkable thoracic aorta. No aneurysm. Normal sized heart. Main pulmonary artery unremarkable. No vascular congestion. No lymphadenopathy. PLEURA: No pleural fluid. No pneumothorax. BONES: No fracture. No destructive lesion. UPPER ABDOMEN: Grossly unremarkable. OTHER FINDINGS: None. IMPRESSION: Unremarkable non-contrast enhanced CT of the chest.
[2017-09-03] MEDS: Insulin Reg-LOW-Coverage SC SCH ×4 (10:21→21:03)
[2017-09-03] MEDS: Vancomycin 1gm in NS 250ml 1 GM/250 ML BAG IVPB SCH ×2 (10:22→21:05)
--- NOTE | 2017-09-03 11:58 | CP.PCM.PN ---
Subjective - Date & Time of Evaluation Date of Evaluation: 09/03/17 Time of Evaluation: 09:55 - Subjective Subjective: Don Gil PGY1 IM Progress Note for Dr. Barrow Service Patient was seen and examined. He is complaining of scrotal pain. denies fevers/ chills, cp, cough, sob, n/v/d. no other acute overnight events. Objective - Vital Signs/Intake and Output Vital Signs (last 24 hours): Temp Pulse Resp BP Pulse Ox 99.5 F 103 H 20 139/94 H 96 09/03/17 10:35 09/03/17 10:35 09/03/17 10:35 09/03/17 10:35 09/03/17 10:35 Intake and Output: 09/03/17 09/03/17 06:59 18:59 Intake Total 960 Balance 960 - Medications Medications: Current Medications Sodium Chloride (Sodium Chloride 0.9%) 1,000 mls @ 100 mls/hr IV .Q10H AKIL Last Admin: 09/02/17 23:12 Dose: Not Given Piperacillin Sod/Tazobactam Sod (Zosyn 3.375 In Ns 100ml) 100 mls @ 200 mls/hr IVPB Q6 AKIL PRN Reason: Protocol Stop: 09/09/17 06:01 Last Admin: 09/03/17 05:26 Dose: 200 mls/hr Vancomycin HCl (Vancomycin 1gm) 1 gm in 250 mls @ 167 mls/hr IVPB Q12 AKIL PRN Reason: Protocol Last Admin: 09/03/17 10:22 Dose: 167 mls/hr Insulin Detemir (Levemir) 10 unit SC HS AKIL Insulin Human Regular (Humulin R Low) 0 units SC ACHS AKIL PRN Reason: Protocol Last Admin: 09/03/17 10:21 Dose: Not Given Morphine Sulfate (Morphine) 2 mg IVP Q4H PRN PRN Reason: Pain, moderate (4-7) Last Admin: 09/02/17 21:03 Dose: 2 mg Ondansetron HCl (Zofran Inj) 4 mg IVP Q4H PRN PRN Reason: Nausea/Vomiting Oxycodone/Acetaminophen (Percocet 5/325 Mg Tab) 1 tab PO Q4H PRN PRN Reason: Pain, moderate (4-7) Stop: 09/05/17 07:13 Pantoprazole Sodium (Protonix Ec Tab) 40 mg PO 0600 [facility] Last Admin: 09/03/17 05:26 Dose: 40 mg - Labs Labs: 09/03/17 06:00 09/03/17 06:00 PT 14.1 SECONDS (9.4-12.5) H 09/02/17 05:30 INR 1.22 (0.93-1.08) H 09/02/17 05:30 APTT 33.2 Seconds (25.1-36.5) 09/02/17 05:30 - Additional Findings Additional findings: - Constitutional Appears: Non-toxic, No Acute Distress - Head Exam Head Exam: ATRAUMATIC, NORMAL INSPECTION, NORMOCEPHALIC - Eye Exam Eye Exam: EOMI, Normal appearance, PERRL Pupil Exam: NORMAL ACCOMODATION, PERRL - ENT Exam ENT Exam: Mucous Membranes Moist, Normal Exam - Neck Exam Neck exam: Positive for: Normal Inspection - Respiratory Exam Respiratory Exam: Clear to Auscultation Bilateral, NORMAL BREATHING PATTERN. absent: Accessory Muscle Use, Chest Wall Tenderness, Decreased Breath Sounds, Prolonged Expiratory Phase, Rales, Rhonchi, Wheezes, Respiratory Distress, Stridor - Cardiovascular Exam Cardiovascular Exam: REGULAR RHYTHM, RRR, +S1, +S2. absent: Bradycardia, Tachycardia, Clicks, Diastolic murmur, Gallop, Irregular Rhythm, JVD, Rubs, +S4 , Systolic Murmur - GI/Abdominal Exam GI & Abdominal Exam: Normal Bowel Sounds, Soft. absent: Bruit, Diminished Bowel Sounds, Distended, Firm, Guarding, Hernia, Hyperactive Bowel Sounds, Hypoactive Bowel Sounds, Mass, Organomegaly, Pulsatile Mass, Rebound, Rigid, Tenderness - Exam Exam: Scrotal Swelling (Firm mass adhered to right side of scrotal wall with no overlying erythema or drainage appreciated), Testicular Tenderness (TTP on right side of scrotum over previously described mass). absent: NORMAL INSPECTION, Uretheral Discharge, Testicular Vertical Lie, Bladder Distension External exam: Swelling (Right scrotal wall swelling). absent: Ecchymosis, Erythema, Lacerations, Lesions, NORMAL EXTERNAL EXAM - Extremities Exam Extremities exam: Positive for: full ROM, normal capillary refill, normal inspection, pedal pulses present. Negative for: calf tenderness, joint swelling , pedal edema, tenderness - Back Exam Back exam: FULL ROM, NORMAL INSPECTION. absent: CVA tenderness (L), CVA tenderness (R), muscle spasm, paraspinal tenderness, rash noted, tenderness, vertebral tenderness - Neurological Exam Neurological exam: Alert, CN II-XII Intact, Oriented x3 - Psychiatric Exam Psychiatric exam: Normal Affect, Normal Mood - Skin Skin Exam: Dry, Intact, Normal Color, Warm Assessment and Plan - Assessment and Plan (Free Text) Assessment: 42 year old AAM with a PMH significant for PE approximately 5 years ago on Eliquis and DM2 who presents with two days of right sided scrotal swelling and tenderness and found to be septic likely 2/2 scrotal cellulitis and phlegmon/ early abscess. Plan: 1. Scrotal Cellulitis with Underlying Abscess - SIRS + for tachycardia and leukocytosis (pt remains afebrile) - CT Abdomen/Pelvis and Testicular U/S both showing findings consistent with scrotal cellulitis and abscess measuring 4.4 x 2.4 x 3.6 cm within right scrotal wall - MRI Abd/pelvis showed 1cm splenic lesion and a scrotal abscess - cont Vancomycin and Zosyn - patient for OR for I&D today, will culture fluid - cont Zofran PRN for N/V - cont Morphine PRN for pain control - Blood and Urine Cultures negative - ID consulted, recs appreciated - Urology consulted, recs appreciated - GI consulted, recs appreciated 2. DM2 - Hgb A1C 14.4 - Levemir 10u HS added due to poor glycemic control - ISS - Accuchecks ACHS -Heart Healthy Moderate Carbohydrate Consistent Diet 3. History of PE - home Eliquis held for OR 4. Pulm nodules seen on CT abd/pelvis - follow up CT Chest showed 3mm and 4mm nodules - not requiring any medical intervention at this time - pulm consulted, recs appreciated 5. GI/DVT PPX - Protonix/SCD's Patient was seen, examined and discussed with attending, Dr. Pushpa Gil PGY 1 Pager # [phone]
[2017-09-03] MEDS ORDERED: Lidocaine 1% Inj (20ml) ONE (12:45)
[2017-09-03] MEDS ORDERED: Bupivacaine 0.5% Inj(30mL) ONE (12:45)
[2017-09-03] MEDS ORDERED: Propofol 10 mg/ml Inj (20 ML) ONE ×2 (12:49→13:02)
[2017-09-03] MEDS ORDERED: HYDROmorphone 0.5 mg/0.5 ml ISec IVP PRN (13:31)
[2017-09-03] MEDS ORDERED: Lactated Ringer's 1,000 ML IV SCH (13:45)
[2017-09-03] MEDS ORDERED: Oxycodone/Acetaminophen 5/325 mg Tab PO PRN (13:47)
--- NOTE | 2017-09-03 13:49 | CP.PCM.PN ---
Subjective - Date & Time of Evaluation Date of Evaluation: 09/03/17 Time of Evaluation: 09:00 - Subjective Subjective: For cystoscopy today, no fevers overnight, still with scrotal swelling. Objective - Vital Signs/Intake and Output Vital Signs (last 24 hours): Temp Pulse Resp BP Pulse Ox 99.5 F 103 H 20 139/94 H 96 09/03/17 10:35 09/03/17 10:35 09/03/17 10:35 09/03/17 10:35 09/03/17 10:35 Intake and Output: 09/03/17 09/03/17 06:59 18:59 Intake Total 960 Balance 960 - Medications Medications: Current Medications Sodium Chloride (Sodium Chloride 0.9%) 1,000 mls @ 100 mls/hr IV .Q10H [facility] Last Admin: 09/02/17 23:12 Dose: Not Given Piperacillin Sod/Tazobactam Sod (Zosyn 3.375 In Ns 100ml) 100 mls @ 200 mls/hr IVPB Q6 [facility] PRN Reason: Protocol Stop: 09/09/17 06:01 Last Admin: 09/03/17 05:26 Dose: 200 mls/hr Vancomycin HCl (Vancomycin 1gm) 1 gm in 250 mls @ 167 mls/hr IVPB Q12 [facility] PRN Reason: Protocol Last Admin: 09/03/17 10:22 Dose: 167 mls/hr Insulin Detemir (Levemir) 10 unit SC HS [facility] Insulin Human Regular (Humulin R Low) 0 units SC ACHS [facility] PRN Reason: Protocol Last Admin: 09/03/17 10:21 Dose: Not Given Morphine Sulfate (Morphine) 2 mg IVP Q4H PRN PRN Reason: Pain, moderate (4-7) Last Admin: 09/02/17 21:03 Dose: 2 mg Ondansetron HCl (Zofran Inj) 4 mg IVP Q4H PRN PRN Reason: Nausea/Vomiting Oxycodone/Acetaminophen (Percocet 5/325 Mg Tab) 1 tab PO Q4H PRN PRN Reason: Pain, moderate (4-7) Stop: 09/05/17 07:13 Pantoprazole Sodium (Protonix Ec Tab) 40 mg PO 0600 [facility] Last Admin: 09/03/17 05:26 Dose: 40 mg - Labs Labs: 09/03/17 06:00 09/03/17 06:00 PT 14.1 SECONDS (9.4-12.5) H 09/02/17 05:30 INR 1.22 (0.93-1.08) H 09/02/17 05:30 APTT 33.2 Seconds (25.1-36.5) 09/02/17 05:30 - Constitutional Appears: Non-toxic - Head Exam Head Exam: NORMAL INSPECTION - Respiratory Exam Respiratory Exam: Decreased Breath Sounds - Cardiovascular Exam Cardiovascular Exam: +S1, +S2 - GI/Abdominal Exam GI & Abdominal Exam: Soft. absent: Tenderness Assessment and Plan - Assessment and Plan (Free Text) Plan: Assessment Sepsis due to scrotal cellulitis with abscess pulmonary embolism DM morbid obesity with BMI 41 Plan continue Vancomycin and Zosyn day 2; blood cx are negative; follow up cystoscopy results; patient will need I and D of the scrotal abscess
[2017-09-03] MEDS: Sodium Chloride 0.9% 1,000 ML IV SCH (15:43)
[2017-09-03] MEDS: Morphine 2 mg/ml ISec IVP PRN (20:57)
[2017-09-03] MEDS ORDERED: Insulin Detemir 100 units/ml Vial (Levemir) SC SCH (22:00)
[2017-09-04] MEDS: Pantoprazole 40 mg EC Tab PO SCH (05:32)
[2017-09-04] MEDS: Morphine 2 mg/ml ISec IVP PRN ×4 (05:32→21:47)
[2017-09-04] MEDS: Piperacillin/Tazobact 3.375 gm 100 ML IVPB SCH ×4 (05:32→23:22)
[2017-09-04] MEDS: Sodium Chloride 0.9% 1,000 ML IV SCH ×2 (05:33→17:03)
[2017-09-04 07:07] LABS: HEMOGLOBIN 12.7 g/dL (14.0-18.0); MEAN CELL VOLUME 79.1 fl (80.0-105.0); MEAN CORPUSCULAR HGB CONC 34.1 g/dl (31.0-37.0); MEAN PLATELET VOLUME 10.4 fl (7.0-11.0); RBC 4.7 10^6/uL (3.5-6.1); RED CELL DISTRIBUTION WIDTH 13.3 % (11.5-14.5); WHITE BLOOD COUNT 13.5 10^3/ul (4.5-11.0)
[2017-09-04 07:32] LABS: ALBUMIN 3.3 g/dL (3.0-4.8); ALT/SGPT 21 U/L (7-56); AST/SGOT 18 U/L (17-59); BLOOD UREA NITROGEN 8 mg/dL (7-21); CALCIUM 8.8 mg/dL (8.4-10.5); GFR AFRICAN-AMERICAN > 60; GFR NON-AFRICAN AMERICAN > 60
[2017-09-04] MEDS: Insulin Reg-LOW-Coverage SC SCH ×4 (07:53→21:46)
--- NOTE | 2017-09-04 08:05 | PN ---
DATE: SUBJECTIVE: The patient appears comfortable this morning. He is not short of breath at rest. OBJECTIVE: VITALS (Last noted in the computer): Temperature is 99.0, pulse 81, respirations 14, blood pressure 140/84. Oxygen saturation on room air is 95% to 96%. HEENT: Normocephalic, atraumatic. No JVD. CARDIOVASCULAR: Positive S1, S2. No S3, gallop. LUNGS: Clear bilaterally. EXTREMITIES: No clubbing, cyanosis, or edema. Calves are nontender to palpation. GI: Abdomen is soft, nontender, and nondistended. Bowel sounds are positive. SKIN: + right scrotal abscess. There is a right groin dressing. The patient is status post surgery. NEUROLOGIC: Limited at the present time. PERTINENT LABORATORY DATA: CAT scan of the chest was done yesterday and reviewed. There is a tiny, 3 mm nodule noted in the right middle lobe. There is also a tiny, a 4 mm nodule noted in the right major fissure. There is no lymphadenopathy. IMPRESSION: 1. Right scrotal abscess. 2. Sepsis syndrome. 3. Mild anemia. 4. Tiny pulmonary nodules. PLAN: The patient appears comfortable this morning. He is resting without shortness of breath. On physical exam, his lungs remain clear. Oxygen saturation on room air is 95% to 96%. I did note the CAT scan of the chest above. I have also discussed the CAT scan findings with the patient at length this morning. At this point in time, there is no pulmonary intervention needed - concerning the pulmonary nodules. However, the patient was strongly advised that he will need a followup CAT scan - as an outpatient. I did give him my card/information for a followup appointment. He says, he will call. In addition, I would restart the Eliquis - when okay with Surgery. Inputs by GI, Infectious Disease, and Genitourinary are noted. At this point in time, the patient is clinically improved. He has no pulmonary complaints. Hopefully, he will follow up with me in the office - concerning his CAT scan. There is no additional pulmonary intervention needed at this point in time. Please call me for any additional pulmonary questions or problems with this patient. I would be happy to reevaluate. Edmundo Franco MD [facility] # [phone] CHARLINE
[2017-09-04] MEDS: Vancomycin 1gm in NS 250ml 1 GM/250 ML BAG IVPB SCH ×2 (09:22→21:51)
--- NOTE | 2017-09-04 13:00 | CP.PCM.PN ---
<Lorin Whatley - Last Filed: 09/04/17 14:42> Subjective - Date & Time of Evaluation Date of Evaluation: 09/04/17 Time of Evaluation: 08:30 - Subjective Subjective: Dr. Barrow Service Pt seen and examined at bedside. Pt notes mild improvement of scrotal pain. As per nursing staff, no acute or adverse events overnight. Pt is tolerating PO intake, moving bowel and bladder regularly. Dressing to scrotum intact. Pt denied fever, chills, sob, chest pains, abdominal pains, n/v/d/c. Objective - Vital Signs/Intake and Output Vital Signs (last 24 hours): Temp Pulse Resp BP Pulse Ox 98.3 F 86 20 118/74 99 09/04/17 07:30 09/04/17 07:30 09/04/17 07:30 09/04/17 07:30 09/04/17 07:30 Intake and Output: 09/04/17 09/04/17 06:59 18:59 Intake Total 660 Balance 660 - Medications Medications: Current Medications Sodium Chloride (Sodium Chloride 0.9%) 1,000 mls @ 100 mls/hr IV .Q10H [facility] Last Admin: 09/04/17 05:33 Dose: 100 mls/hr Piperacillin Sod/Tazobactam Sod (Zosyn 3.375 In Ns 100ml) 100 mls @ 200 mls/hr IVPB Q6 [facility] PRN Reason: Protocol Stop: 09/09/17 06:01 Last Admin: 09/04/17 11:34 Dose: 200 mls/hr Vancomycin HCl (Vancomycin 1gm) 1 gm in 250 mls @ 167 mls/hr IVPB Q12 [facility] PRN Reason: Protocol Last Admin: 09/04/17 09:22 Dose: 167 mls/hr Insulin Detemir (Levemir) 10 unit SC HS [facility] Insulin Human Regular (Humulin R Low) 0 units SC ACHS [facility] PRN Reason: Protocol Last Admin: 09/04/17 11:27 Dose: 4 units Morphine Sulfate (Morphine) 2 mg IVP Q4H PRN PRN Reason: Pain, moderate (4-7) Last Admin: 09/04/17 12:33 Dose: 2 mg Ondansetron HCl (Zofran Inj) 4 mg IVP Q4H PRN PRN Reason: Nausea/Vomiting Oxycodone/Acetaminophen (Percocet 5/325 Mg Tab) 1 tab PO Q6H PRN PRN Reason: Bladder Spasm Stop: 09/06/17 13:48 Pantoprazole Sodium (Protonix Ec Tab) 40 mg PO 0600 [facility] Last Admin: 09/04/17 05:32 Dose: 40 mg - Labs Labs: 09/04/17 06:30 09/04/17 06:30 PT 14.1 SECONDS (9.4-12.5) H 09/02/17 05:30 INR 1.22 (0.93-1.08) H 09/02/17 05:30 APTT 33.2 Seconds (25.1-36.5) 09/02/17 05:30 - Constitutional Appears: No Acute Distress - Head Exam Head Exam: ATRAUMATIC, NORMAL INSPECTION, NORMOCEPHALIC - Eye Exam Eye Exam: EOMI, Normal appearance, PERRL Pupil Exam: NORMAL ACCOMODATION, PERRL - ENT Exam ENT Exam: Mucous Membranes Moist, Normal Exam - Neck Exam Neck Exam: Full ROM, Normal Inspection. absent: Lymphadenopathy - Respiratory Exam Respiratory Exam: Clear to Ausculation Bilateral, NORMAL BREATHING PATTERN - Cardiovascular Exam Cardiovascular Exam: REGULAR RHYTHM, +S1, +S2. absent: Murmur - GI/Abdominal Exam GI & Abdominal Exam: Soft, Normal Bowel Sounds. absent: Tenderness - Exam Exam: Scrotal Swelling ( Scrotal Swelling (Firm mass adhered to right side of scrotal wall with no overlying erythema or drainage appreciated), Testicular Tenderness (TTP on right side of scrotum over previously described mass).), Testicular Tenderness - Extremities Exam Extremities Exam: Full ROM, Normal Capillary Refill, Normal Inspection. absent : Joint Swelling, Pedal Edema - Neurological Exam Neurological Exam: Alert, Awake, CN II-XII Intact, Oriented x3 - Psychiatric Exam Psychiatric exam: Normal Affect, Normal Mood - Skin Skin Exam: Dry, Intact, Normal Color, Warm Assessment and Plan - Assessment and Plan (Free Text) Assessment: 42 year old AAM with a PMH significant for PE approximately 5 years ago on Eliquis and DM2 who presents with two days of right sided scrotal swelling and tenderness and found to be septic likely 2/2 scrotal cellulitis and phlegmon/ early abscess. 1. Scrotal Cellulitis with Underlying Abscess - SIRS + for tachycardia and leukocytosis (pt remains afebrile) - CT Abdomen/Pelvis and Testicular U/S both showing findings consistent with scrotal cellulitis and abscess measuring 4.4 x 2.4 x 3.6 cm within right scrotal wall - MRI Abd/pelvis showed 1cm splenic lesion and a scrotal abscess - abcess now draining. ID consulted, Dr. Carver continue Vancomycin and Zosyn day 3; blood cx are negative; follow up cystoscopy results; follow up scrotal abscess cultures - cont Zofran PRN for N/V - cont Morphine PRN for pain control - Blood and Urine Cultures negative - Urology consulted, recs appreciated - GI consulted, recs appreciated 2. DM2 - Hgb A1C 14.4 - Levemir 10u HS added due to poor glycemic control - ISS - Accuchecks ACHS -Heart Healthy Moderate Carbohydrate Consistent Diet 3. History of PE - restart elaquis s/p OR 4. Pulm nodules seen on CT abd/pelvis - follow up CT Chest showed 3mm and 4mm nodules - not requiring any medical intervention at this time - pulm consulted, recs appreciated 5. GI/DVT PPX - Protonix/SCD's Patient was seen, examined and discussed with attending, Dr. Bright <Venkata Bright S - Last Filed: 09/05/17 07:36> Objective - Vital Signs/Intake and Output Vital Signs (last 24 hours): Temp Pulse Resp BP Pulse Ox 98.3 F 86 20 118/74 99 09/04/17 07:30 09/04/17 07:30 09/04/17 07:30 09/04/17 07:30 09/04/17 07:30 Intake and Output: 09/05/17 09/05/17 06:59 18:59 Intake Total 600 Balance 600 - Medications Medications: Current Medications Apixaban (Eliquis) 5 mg PO BID [facility]IL PRN Reason: Protocol Last Admin: 09/04/17 17:02 Dose: 5 mg Sodium Chloride (Sodium Chloride 0.9%) 1,000 mls @ 100 mls/hr IV .Q10H [facility] Last Admin: 09/05/17 04:14 Dose: 100 mls/hr Piperacillin Sod/Tazobactam Sod (Zosyn 3.375 In Ns 100ml) 100 mls @ 200 mls/hr IVPB Q6 [facility] PRN Reason: Protocol Stop: 09/09/17 06:01 Last Admin: 09/05/17 05:14 Dose: 200 mls/hr Vancomycin HCl (Vancomycin 1gm) 1 gm in 250 mls @ 167 mls/hr IVPB Q12 [facility] PRN Reason: Protocol Last Admin: 09/04/17 21:51 Dose: 167 mls/hr Insulin Detemir (Levemir) 10 unit SC HS [facility] Last Admin: 09/04/17 21:46 Dose: 10 unit Insulin Human Regular (Humulin R Low) 0 units SC ACHS AKIL PRN Reason: Protocol Last Admin: 09/04/17 21:46 Dose: 2 units Morphine Sulfate (Morphine) 2 mg IVP Q4H PRN PRN Reason: Pain, moderate (4-7) Last Admin: 09/05/17 04:12 Dose: 2 mg Ondansetron HCl (Zofran Inj) 4 mg IVP Q4H PRN PRN Reason: Nausea/Vomiting Oxycodone/Acetaminophen (Percocet 5/325 Mg Tab) 1 tab PO Q6H PRN PRN Reason: Bladder Spasm Stop: 09/06/17 13:48 Pantoprazole Sodium (Protonix Ec Tab) 40 mg PO 0600 [facility] Last Admin: 09/05/17 05:14 Dose: 40 mg - Labs Labs: 09/05/17 06:00 09/05/17 06:00 PT 14.1 SECONDS (9.4-12.5) H 09/02/17 05:30 INR 1.22 (0.93-1.08) H 09/02/17 05:30 APTT 33.2 Seconds (25.1-36.5) 09/02/17 05:30 Assessment and Plan - Assessment and Plan (Free Text) Plan: discussed w/ resident at length went over meds labs tests xrays plans orders consults reviewed
--- NOTE | 2017-09-04 13:44 | CP.PCM.PN ---
Subjective - Date & Time of Evaluation Date of Evaluation: 09/04/17 Time of Evaluation: 12:15 - Subjective Subjective: Abscess is now draining, still with perineal soreness but a little better, no fevers overnight. Objective - Vital Signs/Intake and Output Vital Signs (last 24 hours): Temp Pulse Resp BP Pulse Ox 98.3 F 86 20 118/74 99 09/04/17 07:30 09/04/17 07:30 09/04/17 07:30 09/04/17 07:30 09/04/17 07:30 Intake and Output: 09/04/17 09/04/17 06:59 18:59 Intake Total 660 Balance 660 - Medications Medications: Current Medications Sodium Chloride (Sodium Chloride 0.9%) 1,000 mls @ 100 mls/hr IV .Q10H [facility] Last Admin: 09/04/17 05:33 Dose: 100 mls/hr Piperacillin Sod/Tazobactam Sod (Zosyn 3.375 In Ns 100ml) 100 mls @ 200 mls/hr IVPB Q6 [facility] PRN Reason: Protocol Stop: 09/09/17 06:01 Last Admin: 09/04/17 05:32 Dose: 200 mls/hr Vancomycin HCl (Vancomycin 1gm) 1 gm in 250 mls @ 167 mls/hr IVPB Q12 [facility] PRN Reason: Protocol Last Admin: 09/04/17 09:22 Dose: 167 mls/hr Insulin Detemir (Levemir) 10 unit SC HS [facility] Insulin Human Regular (Humulin R Low) 0 units SC ACHS AKIL PRN Reason: Protocol Last Admin: 09/04/17 07:53 Dose: 3 units Morphine Sulfate (Morphine) 2 mg IVP Q4H PRN PRN Reason: Pain, moderate (4-7) Last Admin: 09/04/17 05:32 Dose: 2 mg Ondansetron HCl (Zofran Inj) 4 mg IVP Q4H PRN PRN Reason: Nausea/Vomiting Oxycodone/Acetaminophen (Percocet 5/325 Mg Tab) 1 tab PO Q6H PRN PRN Reason: Bladder Spasm Stop: 09/06/17 13:48 Pantoprazole Sodium (Protonix Ec Tab) 40 mg PO 0600 [facility] Last Admin: 09/04/17 05:32 Dose: 40 mg - Labs Labs: 09/04/17 06:30 09/04/17 06:30 PT 14.1 SECONDS (9.4-12.5) H 09/02/17 05:30 INR 1.22 (0.93-1.08) H 09/02/17 05:30 APTT 33.2 Seconds (25.1-36.5) 09/02/17 05:30 - Constitutional Appears: Non-toxic - Head Exam Head Exam: NORMAL INSPECTION - ENT Exam ENT Exam: Mucous Membranes Moist - Neck Exam Neck Exam: absent: Meningismus - Respiratory Exam Respiratory Exam: Decreased Breath Sounds - Cardiovascular Exam Cardiovascular Exam: +S1, +S2 - GI/Abdominal Exam GI & Abdominal Exam: Soft. absent: Tenderness Assessment and Plan - Assessment and Plan (Free Text) Plan: Assessment Sepsis due to scrotal cellulitis with abscess pulmonary embolism DM morbid obesity with BMI 41 Plan continue Vancomycin and Zosyn day 3; blood cx are negative; follow up cystoscopy results; follow up scrotal abscess cultures
[2017-09-05] MEDS: Morphine 2 mg/ml ISec IVP PRN ×2 (04:12→21:26)
[2017-09-05] MEDS: Sodium Chloride 0.9% 1,000 ML IV SCH ×2 (04:14→17:24)
[2017-09-05] MEDS: Piperacillin/Tazobact 3.375 gm 100 ML IVPB SCH ×4 (05:14→23:35)
[2017-09-05] MEDS: Pantoprazole 40 mg EC Tab PO SCH (05:14)
[2017-09-05] MEDS ORDERED: Morphine 2 mg/ml ISec IVP STA (06:58)
[2017-09-05 07:07] LABS: HEMOGLOBIN 12.4 g/dL (14.0-18.0); MEAN CELL VOLUME 79.4 fl (80.0-105.0); MEAN CORPUSCULAR HEMOGLOBIN 26.6 pg (25.0-35.0); MEAN CORPUSCULAR HGB CONC 33.5 g/dl (31.0-37.0); MEAN PLATELET VOLUME 10.6 fl (7.0-11.0); RBC 4.66 10^6/uL (3.5-6.1); RED CELL DISTRIBUTION WIDTH 13.4 % (11.5-14.5); WHITE BLOOD COUNT 13.1 10^3/ul (4.5-11.0)
[2017-09-05 07:16] LABS: ALBUMIN 3.2 g/dL (3.0-4.8); ALT/SGPT 18 U/L (7-56); AST/SGOT 17 U/L (17-59); BLOOD UREA NITROGEN 7 mg/dL (7-21); CALCIUM 8.9 mg/dL (8.4-10.5); GFR AFRICAN-AMERICAN > 60; GFR NON-AFRICAN AMERICAN > 60
[2017-09-05] MEDS: Insulin Reg-LOW-Coverage SC SCH ×4 (08:23→22:40)
[2017-09-05] MEDS: Vancomycin 1gm in NS 250ml 1 GM/250 ML BAG IVPB SCH ×2 (10:05→21:26)
[2017-09-05] MEDS ORDERED: Insulin Detemir 100 units/ml Vial (Levemir) SC SCH ×2 (11:58→12:01)
--- NOTE | 2017-09-05 12:07 | CP.PCM.PN ---
<Lorin Whatley - Last Filed: 09/05/17 12:01> Subjective - Date & Time of Evaluation Date of Evaluation: 09/05/17 Time of Evaluation: 11:00 - Subjective Subjective: Dr. Barrow Service Pt seen and examined at bedside. Pt notes that he hhad scrotal dressing changes this morning with associated pain, analgesics provided and effective, is more comfortable now. Pt is having regular bowel and bladder movements, discomfort with urination, however pain is under control . As per nursing staff, no acute or adverse events overnight. Pt is tolerating PO intake. Pt denied fever, chills , sob, chest pains, abdominal pains, n/v/d/c. Objective - Vital Signs/Intake and Output Vital Signs (last 24 hours): Temp Pulse Resp BP Pulse Ox 99.3 F 84 18 127/82 98 09/05/17 07:30 09/05/17 07:30 09/05/17 07:30 09/05/17 07:30 09/05/17 07:30 Intake and Output: 09/05/17 09/05/17 06:59 18:59 Intake Total 600 Balance 600 - Medications Medications: Current Medications Apixaban (Eliquis) 5 mg PO BID [facility]IL PRN Reason: Protocol Last Admin: 09/05/17 10:05 Dose: 5 mg Sodium Chloride (Sodium Chloride 0.9%) 1,000 mls @ 100 mls/hr IV .Q10H [facility] Last Admin: 09/05/17 04:14 Dose: 100 mls/hr Piperacillin Sod/Tazobactam Sod (Zosyn 3.375 In Ns 100ml) 100 mls @ 200 mls/hr IVPB Q6 [facility] PRN Reason: Protocol Stop: 09/09/17 06:01 Last Admin: 09/05/17 05:14 Dose: 200 mls/hr Vancomycin HCl (Vancomycin 1gm) 1 gm in 250 mls @ 167 mls/hr IVPB Q12 [facility] PRN Reason: Protocol Last Admin: 09/05/17 10:05 Dose: 167 mls/hr Insulin Detemir (Levemir) 13 unit SC HS [facility] Insulin Human Regular (Humulin R Low) 0 units SC ACHS [facility] PRN Reason: Protocol Last Admin: 09/05/17 11:56 Dose: 3 units Morphine Sulfate (Morphine) 2 mg IVP Q4H PRN PRN Reason: Pain, moderate (4-7) Last Admin: 09/05/17 04:12 Dose: 2 mg Ondansetron HCl (Zofran Inj) 4 mg IVP Q4H PRN PRN Reason: Nausea/Vomiting Oxycodone/Acetaminophen (Percocet 5/325 Mg Tab) 1 tab PO Q6H PRN PRN Reason: Bladder Spasm Stop: 09/06/17 13:48 Pantoprazole Sodium (Protonix Ec Tab) 40 mg PO 0600 [facility] Last Admin: 09/05/17 05:14 Dose: 40 mg - Labs Labs: 09/05/17 06:00 09/05/17 06:00 PT 14.1 SECONDS (9.4-12.5) H 09/02/17 05:30 INR 1.22 (0.93-1.08) H 09/02/17 05:30 APTT 33.2 Seconds (25.1-36.5) 09/02/17 05:30 - Constitutional Appears: No Acute Distress - Head Exam Head Exam: ATRAUMATIC, NORMAL INSPECTION, NORMOCEPHALIC - Eye Exam Eye Exam: EOMI, Normal appearance, PERRL Pupil Exam: NORMAL ACCOMODATION, PERRL - ENT Exam ENT Exam: Mucous Membranes Moist, Normal Exam - Respiratory Exam Respiratory Exam: Clear to Ausculation Bilateral, NORMAL BREATHING PATTERN - Cardiovascular Exam Cardiovascular Exam: REGULAR RHYTHM, +S1, +S2. absent: Murmur - GI/Abdominal Exam GI & Abdominal Exam: Soft, Normal Bowel Sounds. absent: Tenderness - Exam Exam: Scrotal Swelling (dressing in place) - Extremities Exam Extremities Exam: Full ROM, Normal Capillary Refill, Normal Inspection. absent : Joint Swelling, Pedal Edema - Back Exam Back Exam: NORMAL INSPECTION - Neurological Exam Neurological Exam: Alert, Awake, CN II-XII Intact, Normal Gait, Oriented x3 - Psychiatric Exam Psychiatric exam: Normal Affect, Normal Mood - Skin Skin Exam: Dry, Intact, Normal Color, Warm Assessment and Plan - Assessment and Plan (Free Text) Assessment: 42 year old AAM with a PMH significant for PE approximately 5 years ago on Eliquis and DM2 who presents with two days of right sided scrotal swelling and tenderness and found to be septic likely 2/2 scrotal cellulitis and phlegmon/ early abscess. 1. Scrotal Cellulitis with Underlying Abscess - SIRS + for tachycardia and leukocytosis (pt remains afebrile) - CT Abdomen/Pelvis and Testicular U/S both showing findings consistent with scrotal cellulitis and abscess measuring 4.4 x 2.4 x 3.6 cm within right scrotal wall - MRI Abd/pelvis showed 1cm splenic lesion and a scrotal abscess - abcess now draining. ID consulted, Dr. Carver continue Vancomycin and Zosyn day 4; blood cx are negative; follow up cystoscopy results; follow up scrotal abscess cultures - cont Zofran PRN for N/V - cont Morphine/percocet PRN for pain control - Blood and Urine Cultures negative - Urology consulted, recs appreciated - GI consulted, recs appreciated 2. DM2 - Hgb A1C 14.4 - Levemir 13u HS added due to poor glycemic control - ISS - Accuchecks ACHS -Heart Healthy Moderate Carbohydrate Consistent Diet 3. History of PE - restart elaquis s/p OR 4. Pulm nodules seen on CT abd/pelvis - follow up CT Chest showed 3mm and 4mm nodules - not requiring any medical intervention at this time - pulm consulted, recs appreciated 5. GI/DVT PPX - Protonix/SCD's Patient was seen, examined and discussed with attending, Dr. Bright <Venkata Bright S - Last Filed: 09/06/17 06:52> Objective - Vital Signs/Intake and Output Vital Signs (last 24 hours): Temp Pulse Resp BP Pulse Ox 98.8 F 89 18 121/76 95 09/05/17 16:30 09/05/17 16:30 09/05/17 16:30 09/05/17 16:30 09/05/17 16:30 Intake and Output: 09/05/17 09/06/17 18:59 06:59 Intake Total 540 Balance 540 - Medications Medications: Current Medications Apixaban (Eliquis) 5 mg PO BID [facility] PRN Reason: Protocol Last Admin: 09/05/17 17:51 Dose: Not Given Sodium Chloride (Sodium Chloride 0.9%) 1,000 mls @ 100 mls/hr IV .Q10H [facility] Last Admin: 09/05/17 17:24 Dose: 100 mls/hr Piperacillin Sod/Tazobactam Sod (Zosyn 3.375 In Ns 100ml) 100 mls @ 200 mls/hr IVPB Q6 [facility] PRN Reason: Protocol Stop: 09/09/17 06:01 Last Admin: 09/06/17 05:25 Dose: 200 mls/hr Vancomycin HCl (Vancomycin 1gm) 1 gm in 250 mls @ 167 mls/hr IVPB Q12 [facility] PRN Reason: Protocol Last Admin: 09/05/17 21:26 Dose: 167 mls/hr Insulin Detemir (Levemir) 13 unit SC HS [facility] Last Admin: 09/05/17 21:26 Dose: 13 unit Insulin Human Regular (Humulin R Low) 0 units SC ACHS [facility] PRN Reason: Protocol Last Admin: 09/05/17 22:40 Dose: Not Given Morphine Sulfate (Morphine) 2 mg IVP Q4H PRN PRN Reason: Pain, moderate (4-7) Last Admin: 09/05/17 21:26 Dose: 2 mg Ondansetron HCl (Zofran Inj) 4 mg IVP Q4H PRN PRN Reason: Nausea/Vomiting Oxycodone/Acetaminophen (Percocet 5/325 Mg Tab) 1 tab PO Q6H PRN PRN Reason: Bladder Spasm Stop: 09/06/17 13:48 Pantoprazole Sodium (Protonix Ec Tab) 40 mg PO 0600 [facility] Last Admin: 09/06/17 05:25 Dose: 40 mg - Labs Labs: 09/05/17 06:00 09/05/17 06:00 PT 14.1 SECONDS (9.4-12.5) H 09/02/17 05:30 INR 1.22 (0.93-1.08) H 09/02/17 05:30 APTT 33.2 Seconds (25.1-36.5) 09/02/17 05:30 Assessment and Plan - Assessment and Plan (Free Text) Plan: discussed at length w/ resident went over meds labs tests xrays consults plans orders reviewed
--- NOTE | 2017-09-05 12:38 | CP.PCM.PN ---
Subjective - Date & Time of Evaluation Date of Evaluation: 09/05/17 Time of Evaluation: 11:45 - Subjective Subjective: Scrotal packing changed today and still had discomfort. No fevers overnight. Objective - Vital Signs/Intake and Output Vital Signs (last 24 hours): Temp Pulse Resp BP Pulse Ox 99.3 F 84 18 127/82 98 09/05/17 07:30 09/05/17 07:30 09/05/17 07:30 09/05/17 07:30 09/05/17 07:30 Intake and Output: 09/05/17 09/05/17 06:59 18:59 Intake Total 600 Balance 600 - Medications Medications: Current Medications Apixaban (Eliquis) 5 mg PO BID [facility] PRN Reason: Protocol Last Admin: 09/05/17 10:05 Dose: 5 mg Sodium Chloride (Sodium Chloride 0.9%) 1,000 mls @ 100 mls/hr IV .Q10H [facility] Last Admin: 09/05/17 04:14 Dose: 100 mls/hr Piperacillin Sod/Tazobactam Sod (Zosyn 3.375 In Ns 100ml) 100 mls @ 200 mls/hr IVPB Q6 [facility] PRN Reason: Protocol Stop: 09/09/17 06:01 Last Admin: 09/05/17 05:14 Dose: 200 mls/hr Vancomycin HCl (Vancomycin 1gm) 1 gm in 250 mls @ 167 mls/hr IVPB Q12 [facility] PRN Reason: Protocol Last Admin: 09/05/17 10:05 Dose: 167 mls/hr Insulin Detemir (Levemir) 10 unit SC HS [facility] Last Admin: 09/04/17 21:46 Dose: 10 unit Insulin Human Regular (Humulin R Low) 0 units SC ACHS [facility] PRN Reason: Protocol Last Admin: 09/05/17 08:23 Dose: 2 units Morphine Sulfate (Morphine) 2 mg IVP Q4H PRN PRN Reason: Pain, moderate (4-7) Last Admin: 09/05/17 04:12 Dose: 2 mg Ondansetron HCl (Zofran Inj) 4 mg IVP Q4H PRN PRN Reason: Nausea/Vomiting Oxycodone/Acetaminophen (Percocet 5/325 Mg Tab) 1 tab PO Q6H PRN PRN Reason: Bladder Spasm Stop: 09/06/17 13:48 Pantoprazole Sodium (Protonix Ec Tab) 40 mg PO 0600 [facility] Last Admin: 09/05/17 05:14 Dose: 40 mg - Labs Labs: 09/05/17 06:00 09/05/17 06:00 PT 14.1 SECONDS (9.4-12.5) H 09/02/17 05:30 INR 1.22 (0.93-1.08) H 09/02/17 05:30 APTT 33.2 Seconds (25.1-36.5) 09/02/17 05:30 - Constitutional Appears: Non-toxic - Head Exam Head Exam: NORMAL INSPECTION - ENT Exam ENT Exam: Mucous Membranes Moist - Neck Exam Neck Exam: absent: Lymphadenopathy, Meningismus - Respiratory Exam Respiratory Exam: Decreased Breath Sounds - Cardiovascular Exam Cardiovascular Exam: +S1, +S2 - GI/Abdominal Exam GI & Abdominal Exam: Soft. absent: Tenderness Assessment and Plan - Assessment and Plan (Free Text) Plan: Assessment Sepsis due to scrotal cellulitis with abscess S/P I and D POD #2, growing Group B Strep pulmonary embolism DM morbid obesity with BMI 41 Plan on Vancomycin and Zosyn day 4; blood cx are negative; when ready for discharge, would recommend PO Doxycycline and PO Augmentin to complete another 7 days of therapy
--- NOTE | 2017-09-05 18:52 | PN ---
DATE: 09/05/2017 Please see the consultation note from 09/02/2017 and also the operative report from 09/03/2017. The patient presented with scrotal abscess and then subsequently re-drained it. He is actually clinically improving. He is complaining of pain and discomfort. I am not going to change the dressing. See the previously dictated note. The operative report where we drained the abscess, we also sent off some skin for evaluation. In the interim, there are no other major changes other than pain. The patient is voiding well. No other major complaints. PAST MEDICAL/SURGICAL HISTORY: No other changes. PHYSICAL EXAMINATION: GENERAL: He is a well-nourished male. He is currently resting comfortably in bed. ABDOMEN: Relatively soft. GENITOURINARY: His scrotal edema is noted. His penis has normal phallus. It is somewhat hidden by the edema. The patient had received some analgesics. He just received morphine a couple of hours back. It is about 6 o'clock now in the morning. He received it about 4:30 in the morning. (See below plan) At the bedside, I removed the packing. I have about 2-1/2 rolls of Kerlix in it. I looked at the wound, it looks very good. I replaced with a new Kerlix. We did about a three-quarters of a Kerlix and inserted it. I soaked it with Betadine and squeezed it wet-dry but with Betadine impregnated Kerlix and then covered the skin. All those were done at the bedside. FINAL DIAGNOSIS: Scrotal abscess. Now, the patient is postoperative and recovering. PLAN: The plan is to continue antibiotics and local wound care and then further plans will follow. ADDENDUM I have discussed further with the patient depending on his pain, tolerance, and the overall situation, We will discuss the possibility for bringing him back to the OR for a repeat of the debridement. I discussed with the patient at some time just to go back with some anesthesia sedation so that we can clean up and freshen up the wound edges. May be necessary and may be preferable and may be even consider after a few days of antibiotics to put a stitch or two to help reapproximate the skin edges instead of completely healing by secondary intention. I discussed all of this with him. We will how the patient does. Further plans will follow. José Miguel Vance MD [facility] # [id number]
[2017-09-06] MEDS: Piperacillin/Tazobact 3.375 gm 100 ML IVPB SCH ×4 (05:25→17:12)
[2017-09-06] MEDS: Pantoprazole 40 mg EC Tab PO SCH (05:25)
[2017-09-06 07:15] LABS: HEMOGLOBIN 12.3 g/dL (14.0-18.0); MEAN CELL VOLUME 79.4 fl (80.0-105.0); MEAN CORPUSCULAR HEMOGLOBIN 26.2 pg (25.0-35.0); MEAN PLATELET VOLUME 10.4 fl (7.0-11.0); RBC 4.7 10^6/uL (3.5-6.1); RED CELL DISTRIBUTION WIDTH 13.3 % (11.5-14.5); WHITE BLOOD COUNT 10.4 10^3/ul (4.5-11.0)
[2017-09-06 07:51] VITALS: PULSE 86; RESP 20
[2017-09-06 08:08] LABS: ALBUMIN 3.2 g/dL (3.0-4.8); ALT/SGPT 22 U/L (7-56); AST/SGOT 18 U/L (17-59); BLOOD UREA NITROGEN 11 mg/dL (7-21); CALCIUM 9.1 mg/dL (8.4-10.5); GFR AFRICAN-AMERICAN > 60; GFR NON-AFRICAN AMERICAN > 60
--- NOTE | 2017-09-06 08:15 | OP ---
UROLOGY OPERATIVE REPORT PROCEDURE DATE: 09/03/2017 PREOPERATIVE DIAGNOSIS: Scrotal wall abscess on the right side. POSTOPERATIVE DIAGNOSIS: Scrotal wall abscess on the right side. PROCEDURE: Drainage of the abscess, packing of the wound, and excision of infected skin. BLOOD LOSS: Less than 10 mL. COMPLICATIONS: There were no complications. INDICATIONS: See history and physical for further details. A very pleasant gentleman. See the previously dictated consult note who is reporting that he is having significant pain in his scrotum. We discussed options. After discussing the options, he is here now for the above procedure. We initially were going to try to observe the patient, but the patient is feeling uncomfortable and he feels like it is getting worse. See also the multiple consultations on the chart. With GI, pulmonary, etc., but from urology standpoint, patient reports no voiding complaints, but he does report that he has had no previous similar history in the scrotum or groin area, but he has had this in the buttock and he has to have this in his extremities as well. We discussed the options and I explained to the patient about the need for wound care, and he says he will be fine with this. His has been able to help him previously and he is expected to do the same now. We discussed all the options including observation and giving more time versus draining right now. The patient is here for the above procedure. Today our operating findings are as follows: We drained out about 15 to 20 mL of purulent material, not really I feel foul in odor. We sent it for culture, it is whitish-reddish material. At the other point though on the skin, we made a cruciate incision. At that area, the skin was just a little bit different but was not black, but with history of diabetes, etc., I was worried about, so I sent this to pathology for the lab. DESCRIPTION OF PROCEDURE: After obtaining informed consent, the patient was placed on the table. Routine monitors were placed. Time-outs were called to confirm the patient positioning, etc. We placed the patient in a relative lithotomy position and prepped in usual sterile fashion. We now made a cruciate incision right over the area that looked like the worst area and we went down below and we drained out about 15 to 20 mL of purulent material. It did not really have such a foul odor actually. We now explored the area. We cleaned up the wound. We examined. We never saw the testicle exposed. Just to mention there is again the skin changes but otherwise unremarkable. We irrigated copiously. There are no other pockets that we could feel. We now packed the wound with Betadine-soaked gauze, and overall we did not infection of course. We irrigated and we packed it with Betadine and then applied a dry sterile dressing. The patient tolerated the procedure without complications. There are no complications. The plan will be antibiotics, wound care and . José Miguel Vance MD
[2017-09-06] MEDS: Insulin Reg-LOW-Coverage SC SCH ×2 (08:24→12:19)
[2017-09-06] MEDS: Vancomycin 1gm in NS 250ml 1 GM/250 ML BAG IVPB SCH (09:27)
--- NOTE | 2017-09-06 09:43 | CON ---
UROLOGY CONSULTATION DATE: 09/02/2017 REASON FOR CONSULTATION: An abscess in the scrotum. HISTORY OF PRESENT ILLNESS: Mr. Noble is a very pleasant gentleman who is 42 years old. He reports to the hospital with acute pain in his right hemiscrotum and has been found to have "an abscess" (see the ultrasound and CAT scan report plus also see my physical exam). The patient reports that he has never had any specific urinary problem like this before, but what he has had is similar episodes in other parts of his body. We need to have this drained. We discussed options. Sometimes we can observe them and the patient feels better, also specifically explained to the patient if we make a cut and we drain it, we are going to leave it open and he is going to need wound care that was what he mentioned that he has had similar things before and can take care of it. We are going to observe him and see plans listed below. PAST MEDICAL AND SURGICAL HISTORY: Significant, he has underlying hypertension and diabetes. MEDICATIONS: He is on oral medications. His medical doctor is . SOCIAL HISTORY: He works as a . In fact, he states this is a very bad time to be off and he needs to get back to work as quickly as possible. See the plans below. (Just make a note on the chart, the patient has also been seen by pulmonary for questionable nodules on the CT scan.) He also been seen by GI and in fact GI has ordered an MRI of the abdomen and pelvis. PHYSICAL EXAMINATION: GENERAL: He is a well-nourished male, in no apparent distress, he is currently resting comfortably. VITAL SIGNS: Noted. ABDOMEN: Relatively flat. He has normal , somewhat hidden by the scrotal edema. The left hemiscrotum is all within normal limits and the right hemiscrotum has an erythema. I can feel an area that is a little bit different, and if it is not . At this point, (I do want to make a comment) we made a skin marking on the outside of the skin, so I can see if there is any progression or any worsening. I discussed this with the patient as I was doing it. LABORATORY DATA: Labs did show a white count of 15,000, remainder of the labs are noted. His glucose is significantly elevated above 400. His sodium is noted. BUN and creatinine are noted. Chloride is noted. His lactic acid is also elevated at 2.3. DIAGNOSES: 1. Code sepsis. 2. Scrotal wall cellulitis/possible early formation of an abscess. PLAN: Will be as follows, a pleasant gentleman, young, but he has underlying diabetes and hypertension and was concerned. I explained to the patient the options, risks, benefits, treatment alternatives including going to the operating room immediately, versus the possibility for observing and seeing if it will improve. As long as , perhaps the antibiotics will be . So the plan will be as follows; 1. We will what GI and pulmonary say, also before we do anything want to see what their workup is going to recommend. 2. The patient is already on antibiotics. We will agree with that plan for now. 3. Elevation, analgesics. 4. Further plans will follow and if the patient not improving, I did discuss with him moving up to the operating room. For now, we are going to observe him. Thank you for the urology consultation. José Miguel Vance MD
[2017-09-06] MEDS ORDERED: Insulin Lispro (humaLOG) LOW Coverage SC SCH (16:30)
[2017-09-06] MEDS ORDERED: Insulin Lispro 1 UNITS/0.01 ML SC SCH (16:30)
--- NOTE | 2017-09-06 16:55 | CP.PCM.PN ---
Subjective - Date & Time of Evaluation Date of Evaluation: 09/06/17 Time of Evaluation: 13:10 - Subjective Subjective: Feeling better today, a little less pain in the scrotal area, no fevers overnight. Objective - Vital Signs/Intake and Output Vital Signs (last 24 hours): Temp Pulse Resp BP Pulse Ox 99.0 F 86 20 152/96 H 98 09/06/17 07:30 09/06/17 07:30 09/06/17 07:30 09/06/17 07:30 09/06/17 07:30 Intake and Output: 09/06/17 09/06/17 06:59 18:59 Intake Total 540 Balance 540 - Medications Medications: Current Medications Apixaban (Eliquis) 5 mg PO DAILY AKIL PRN Reason: Protocol Piperacillin Sod/Tazobactam Sod (Zosyn 3.375 In Ns 100ml) 100 mls @ 200 mls/hr IVPB Q6 AKIL PRN Reason: Protocol Stop: 09/09/17 06:01 Last Admin: 09/06/17 05:25 Dose: 200 mls/hr Vancomycin HCl (Vancomycin 1gm) 1 gm in 250 mls @ 167 mls/hr IVPB Q12 AKIL PRN Reason: Protocol Last Admin: 09/06/17 09:27 Dose: 167 mls/hr Insulin Detemir (Levemir) 13 unit SC HS [facility] Last Admin: 09/05/17 21:26 Dose: 13 unit Insulin Human Regular (Humulin R Low) 0 units SC ACHS AKIL PRN Reason: Protocol Last Admin: 09/06/17 08:24 Dose: 2 units Morphine Sulfate (Morphine) 2 mg IVP Q4H PRN PRN Reason: Pain, moderate (4-7) Last Admin: 09/05/17 21:26 Dose: 2 mg Ondansetron HCl (Zofran Inj) 4 mg IVP Q4H PRN PRN Reason: Nausea/Vomiting Oxycodone/Acetaminophen (Percocet 5/325 Mg Tab) 1 tab PO Q6H PRN PRN Reason: Bladder Spasm Stop: 09/06/17 13:48 Pantoprazole Sodium (Protonix Ec Tab) 40 mg PO 0600 [facility] Last Admin: 09/06/17 05:25 Dose: 40 mg - Labs Labs: 09/06/17 06:20 09/06/17 06:20 PT 14.1 SECONDS (9.4-12.5) H 09/02/17 05:30 INR 1.22 (0.93-1.08) H 09/02/17 05:30 APTT 33.2 Seconds (25.1-36.5) 09/02/17 05:30 - Constitutional Appears: Non-toxic - Head Exam Head Exam: NORMAL INSPECTION - ENT Exam ENT Exam: Mucous Membranes Moist - Neck Exam Neck Exam: absent: Meningismus - Respiratory Exam Respiratory Exam: Decreased Breath Sounds - Cardiovascular Exam Cardiovascular Exam: +S1, +S2 - GI/Abdominal Exam GI & Abdominal Exam: Soft. absent: Tenderness Assessment and Plan - Assessment and Plan (Free Text) Plan: Assessment Sepsis due to scrotal cellulitis with abscess S/P I and D POD #3, growing Group B Strep pulmonary embolism DM morbid obesity with BMI 41 Plan on Vancomycin and Zosyn day 5; blood cx are negative; when ready for discharge, would recommend PO Doxycycline and PO Augmentin to complete another 7 days of therapy
[2017-09-06 17:54] VITALS: BP 125/85; TEMP 99.4; O2SAT 99
--- NOTE | 2017-09-06 19:22 | CP.PCM.PN ---
Subjective - Date & Time of Evaluation Date of Evaluation: 09/06/17 Time of Evaluation: 07:20 - Subjective Subjective: Medicine progress note for Dr. Barrow service Patient seen and examined at bedside this morning. No acute overnight events or new complaints reported. Per urology, patient for potential repeat debridement. Per ID, patient to be discharged on PO doxycyline and PO augmentin for 7 days. Potential discharge today pending clearance by urology. Otherwise, denies chest pain, palpitations, SOB. Objective - Vital Signs/Intake and Output Vital Signs (last 24 hours): Temp Pulse Resp BP Pulse Ox 99.4 F 86 20 125/85 99 09/06/17 16:00 09/06/17 16:00 09/06/17 16:00 09/06/17 16:00 09/06/17 16:00 Intake and Output: 09/06/17 09/07/17 18:59 06:59 Intake Total 600 Balance 600 - Medications Medications: Current Medications Apixaban (Eliquis) 5 mg PO DAILY AKIL PRN Reason: Protocol Piperacillin Sod/Tazobactam Sod (Zosyn 3.375 In Ns 100ml) 100 mls @ 200 mls/hr IVPB Q6 AKIL PRN Reason: Protocol Stop: 09/09/17 06:01 Last Admin: 09/06/17 17:12 Dose: Not Given Vancomycin HCl (Vancomycin 1gm) 1 gm in 250 mls @ 167 mls/hr IVPB Q12 AKIL PRN Reason: Protocol Last Admin: 09/06/17 09:27 Dose: 167 mls/hr Insulin Detemir (Levemir) 13 unit SC HS [facility] Last Admin: 09/05/17 21:26 Dose: 13 unit Insulin Human Lispro (Humalog) 3 units SC AC [facility] Last Admin: 09/06/17 17:11 Dose: 3 units Insulin Human Lispro (Humalog Low) 0 units SC ACHS AKIL PRN Reason: Protocol Last Admin: 09/06/17 17:12 Dose: 3 units Morphine Sulfate (Morphine) 2 mg IVP Q4H PRN PRN Reason: Pain, moderate (4-7) Last Admin: 09/05/17 21:26 Dose: 2 mg Ondansetron HCl (Zofran Inj) 4 mg IVP Q4H PRN PRN Reason: Nausea/Vomiting Pantoprazole Sodium (Protonix Ec Tab) 40 mg PO 0600 AKIL Last Admin: 09/06/17 05:25 Dose: 40 mg - Labs Labs: 09/06/17 06:20 09/06/17 06:20 PT 14.1 SECONDS (9.4-12.5) H 09/02/17 05:30 INR 1.22 (0.93-1.08) H 09/02/17 05:30 APTT 33.2 Seconds (25.1-36.5) 09/02/17 05:30 - Constitutional Appears: No Acute Distress - Head Exam Head Exam: ATRAUMATIC, NORMAL INSPECTION, NORMOCEPHALIC - Eye Exam Eye Exam: EOMI Pupil Exam: PERRL - ENT Exam ENT Exam: Mucous Membranes Moist - Respiratory Exam Respiratory Exam: Clear to Ausculation Bilateral. absent: Rales, Rhonchi, Wheezes - Cardiovascular Exam Cardiovascular Exam: REGULAR RHYTHM - GI/Abdominal Exam GI & Abdominal Exam: Soft. absent: Distended, Firm, Guarding, Rigid, Tenderness , Rebound - Exam Exam: Testicular Tenderness Additional comments: surgical packing in place - Extremities Exam Extremities Exam: Normal Inspection. absent: Pedal Edema - Neurological Exam Neurological Exam: Alert, Awake, CN II-XII Intact, Oriented x3 - Psychiatric Exam Psychiatric exam: Normal Affect, Normal Mood - Skin Skin Exam: Dry, Intact, Normal Color, Warm Assessment and Plan - Assessment and Plan (Free Text) Plan: 42 year old male with history of PE approximately 5 years ago on Eliquis and DM2 who presents with two days of right sided scrotal swelling and tenderness and found to be septic secondary to testicular abscess 1. Scrotal Cellulitis/testicular abscess - SIRS + for tachycardia and leukocytosis (pt remains afebrile) - CT Abdomen/Pelvis and Testicular U/S both showing findings consistent with scrotal cellulitis and abscess measuring 4.4 x 2.4 x 3.6 cm within right scrotal wall - MRI Abd/pelvis showed 1cm splenic lesion and a scrotal abscess - ID consulted, Dr. Carver continue Vancomycin and Zosyn - s/p surgical intervention with urology, Dr. Vance; potential repeat debridement today and may potentially be discharged post procedure with PO augmentin and doxycyline for 7 more days - cont Zofran PRN for N/V - cont Morphine/percocet PRN for pain control - Blood and Urine Cultures negative - Urology consulted, recs appreciated 2. DM2 - Hgb A1C 14.4 - Basal/bolus ISS added due to poor glycemic control - Low dose ISS - Accuchecks ACHS - Heart Healthy/Moderate Carbohydrate Consistent Diet 3. History of PE - restart elaquis s/p OR 4. Pulm nodules seen on CT abd/pelvis - follow up CT Chest showed 3mm and 4mm nodules - not requiring any medical intervention at this time - pulm consulted, recs appreciated 5. GI/DVT PPX - Protonix/SCD's Patient was seen, examined and discussed with attending, Dr. Barrow
--- NOTE | 2017-09-06 20:16 | CP.PCM.DIS ---
Provider - Provider Date of Admission: 09/02/17 01:59 Attending physician: Oleg Barrow MD Primary care physician: Nazario Ragland MD Consults: ID - Dr. Carver Urology - Dr. Vilchis Pulmonary - Dr. Franco GI - Dr. Sommer Time Spent in preparation of Discharge (in minutes): 35 Hospital Course - Lab Results Lab Results: Micro Results 09/03/17 14:10 Abscess - Abscess Gram Stain - Final 09/03/17 14:10 Abscess - Abscess Wound Culture - Final Beta Hemolytic Strep Group B Most Recent Lab Values WBC 10.4 10^3/ul (4.5-11.0) D 09/06/17 06:20 RBC 4.70 10^6/uL (3.5-6.1) 09/06/17 06:20 Hgb 12.3 g/dL (14.0-18.0) L 09/06/17 06:20 Hct 37.3 % (42.0-52.0) L 09/06/17 06:20 MCV 79.4 fl (80.0-105.0) L 09/06/17 06:20 MCH 26.2 pg (25.0-35.0) 09/06/17 06:20 MCHC 33.0 g/dl (31.0-37.0) 09/06/17 06:20 RDW 13.3 % (11.5-14.5) 09/06/17 06:20 Plt Count 301 10^3/uL (120.0-450.0) 09/06/17 06:20 MPV 10.4 fl (7.0-11.0) 09/06/17 06:20 Gran % 77.1 % (50.0-68.0) H 09/03/17 06:00 Lymph % (Auto) 11.5 % (22.0-35.0) L 09/03/17 06:00 [place] % (Auto) 8.9 % (1.0-6.0) H 09/03/17 06:00 Eos % (Auto) 1.9 % (1.5-5.0) 09/03/17 06:00 Baso % (Auto) 0.6 % (0.0-3.0) 09/03/17 06:00 Gran # 10.47 (1.4-6.5) H 09/03/17 06:00 Lymph # 1.6 (1.2-3.4) 09/03/17 06:00 [place] # 1.2 (0.1-0.6) H 09/03/17 06:00 Eos # 0.3 (0.0-0.7) 09/03/17 06:00 Baso # 0.08 K/mm3 (0.0-2.0) 09/03/17 06:00 PT 14.1 SECONDS (9.4-12.5) H 09/02/17 05:30 INR 1.22 (0.93-1.08) H 09/02/17 05:30 APTT 33.2 Seconds (25.1-36.5) 09/02/17 05:30 pO2 34 mm/Hg (30-55) 09/01/17 22:38 VBG pH 7.32 (7.32-7.43) 09/01/17 22:38 VBG pCO2 55.0 (40-60) 09/01/17 22:38 VBG HCO3 28.3 mmol/l (21-28) H 09/01/17 22:38 VBG Total CO2 30.0 mmol.L (22-28) H 09/01/17 22:38 VBG O2 Sat (Calc) 68.9 % (40-65) H 09/01/17 22:38 VBG Base Excess 1.1 mmol/L (0.0-2.0) 09/01/17 22:38 VBG Potassium 6.6 mmol/L (3.6-5.2) H* 09/01/17 22:38 Sodium 136.0 mmol/L (132-148) 09/01/17 22:38 Chloride 99.0 mmol/L (98-107) 09/01/17 22:38 Glucose 490 mg/dl (75-110) H* 09/01/17 22:38 Lactate 2.3 mmol/L (0.7-2.1) H 09/01/17 22:38 FiO2 21.0 % 09/01/17 22:38 Sodium 141 mmol/L (132-148) 09/06/17 06:20 Potassium 4.3 mmol/L (3.6-5.0) 09/06/17 06:20 Chloride 106 mmol/L (98-107) 09/06/17 06:20 Carbon Dioxide 28 mmol/L (21-33) 09/06/17 06:20 Anion Gap 12 (10-20) 09/06/17 06:20 BUN 11 mg/dL (7-21) 09/06/17 06:20 Creatinine 0.7 mg/dl (0.8-1.5) L 09/06/17 06:20 Est GFR ( Amer) > 60 09/06/17 06:20 Est GFR (Non-Af Amer) > 60 09/06/17 06:20 POC Glucose (mg/dL) 328 mg/dL (65-110) H 09/06/17 11:15 Random Glucose 287 mg/dL (70-110) H 09/06/17 06:20 Hemoglobin A1c 14.4 % (4.2-6.5) H 09/02/17 05:30 Lactic Acid 2.2 mmol/L (0.7-2.1) H 09/02/17 01:27 Calcium 9.1 mg/dL (8.4-10.5) 09/06/17 06:20 Total Bilirubin 0.4 mg/dL (0.2-1.3) 09/06/17 06:20 AST 18 U/L (17-59) 09/06/17 06:20 ALT 22 U/L (7-56) 09/06/17 06:20 Alkaline Phosphatase 76 U/L (38-126) 09/06/17 06:20 Total Protein 6.3 g/dL (5.8-8.3) 09/06/17 06:20 Albumin 3.2 g/dL (3.0-4.8) 09/06/17 06:20 Globulin 3.2 gm/dL 09/06/17 06:20 Albumin/Globulin Ratio 1.0 (1.1-1.8) L 09/06/17 06:20 Procalcitonin 0.13 NG/ML (0.19-0.49) L 09/02/17 07:50 Venous Blood Potassium 6.6 mmol/L (3.6-5.2) H* 09/01/17 22:38 Urine Color Yellow (YELLOW) 09/01/17 23:14 Urine Appearance Clear (CLEAR) 09/01/17 23:14 Urine pH 6.0 (4.7-8.0) 09/01/17 23:14 Ur Specific [place] <= 1.005 (1.005-1.035) 09/01/17 23:14 Urine Protein Negative mg/dL (<30 mg/dL) 09/01/17 23:14 Urine Glucose (UA) >=1000 mg/dL (NEGATIVE) 09/01/17 23:14 Urine Ketones 40 mg/dL (NEGATIVE) H 09/01/17 23:14 Urine Blood Negative (NEGATIVE) 09/01/17 23:14 Urine Nitrate Negative (NEGATIVE) 09/01/17 23:14 Urine Bilirubin Negative (NEGATIVE) 09/01/17 23:14 Urine Urobilinogen 0.2 E.U./dL (<1 E.U./dL) 09/01/17 23:14 Ur Leukocyte Esterase Negative Denny/uL (NEGATIVE) 09/01/17 23:14 HIV 1&2 Ag/Ab, 4th Gen Nonreactive (Nonreactive) 09/02/17 12:30 - Hospital Course Hospital Course: Mr. Noble is a 42 year old male with past medical history significant for PE approximately 5 years ago on Eliquis and DM type 2 who presented with right sided scrotal swelling and tenderness that has been progressively worsening since onset 2 days prior. He reported tenderness, redness and swelling to the right side of his scrotum with no inciting event noted. On presentation he stated that he often gets "boils" in his groin and believed this swelling to be another recurrence of this. However, the pain and swelling continued to worsen to the point that the patient came to the hospital for further evaluation. A CT abd/pelvis as well as a testicular ultrasound was obtained and revealed findings consistent with scrotal cellulitis and abscess within the right scrotal wall. He was subsequently seen by urology who had performed an incision and drainage of the abscess. He was placed on antibiotics per ID recommendations. Upon discharge he was instructed to follow up with urology the following day (Dr. Vance) and had a scheduled appointment. He was additionally given prescriptions for antibiotics to be continued upon discharge. The following workup/results were obtained during his hospital course : 1. Scrotal Cellulitis/testicular abscess - SIRS + for tachycardia and leukocytosis (pt remains afebrile) - CT Abdomen/Pelvis and Testicular U/S both showing findings consistent with scrotal cellulitis and abscess measuring 4.4 x 2.4 x 3.6 cm within right scrotal wall - MRI Abd/pelvis showed 1cm splenic lesion and a scrotal abscess - ID consulted, Dr. Carver and was placed on Vancomycin and Zosyn pending cultures - s/p surgical intervention with urology, Dr. Vance - discharged post procedure with PO augmentin and doxycyline for 7 more days - Zofran PRN for nausea/vomiting - Pain control - Blood and Urine Cultures negative - Urology consulted - Dr. Vance 2. DM2 - Hgb A1C 14.4 - Basal/bolus ISS added due to poor glycemic control - Low dose ISS - Accuchecks ACHS - Heart Healthy/Moderate Carbohydrate Consistent Diet 3. History of PE - restart elaquis s/p OR 4. Pulm nodules seen on CT abd/pelvis - follow up CT Chest showed 3mm and 4mm nodules - not requiring any medical intervention at this time - pulm consulted, recs appreciated 5. GI/DVT PPX - Protonix/SCD's Patient was seen, examined and discussed with attending, Dr. Barrow Discharge diagnoses: 1. Scrotal cellulitis 2. Testicular abscess 3. Diabetes mellitus type 2 4. History of pulmonary embolism 5. Pulmonary nodules Discharge Exam - Head Exam Head Exam: ATRAUMATIC, NORMAL INSPECTION, NORMOCEPHALIC - Eye Exam Eye Exam: EOMI, PERRL - ENT Exam ENT Exam: Mucous Membranes Moist - Respiratory Exam Respiratory Exam: Clear to PA & Lateral. absent: Rales, Rhonchi, Wheezes - Cardiovascular Exam Cardiovascular Exam: RRR, +S1, +S2. absent: Gallop, JVD, Rubs - GI/Abdominal Exam GI & Abdominal Exam: Normal Bowel Sounds, Soft. absent: Distended, Firm, Guarding, Hernia, Rebound, Tenderness - Extremities Exam Extremities exam: normal inspection - Neurological Exam Neurological exam: Alert, CN II-XII Intact, Oriented x3 - Psychiatric Exam Psychiatric exam: Normal Affect, Normal Mood - Skin Skin Exam: Dry, Intact, Normal Color, Warm Discharge Plan - Discharge Medications Prescriptions: Amoxicillin/Clavulanate [Augmentin 500 MG-125 MG] 1 tab PO BID #14 tab Doxycycline Hyclate 100 mg PO BID #14 capsule - Follow Up Plan Condition: FAIR Disposition: HOME/ ROUTINE Instructions: Pneumococcal Vaccine for Adults (DC), Cellulitis (GEN), Influenza Vaccine (DC), Peripheral Vascular Disease (GEN), Acute Abdominal Pain (GEN), Abscess (GEN), Cellulitis (DC) Additional Instructions: 1. PLEASE FOLLOW UP WITH DR BARROW CALL AND MAKE APPOINTMENT 2. Follow up with your urologist, Dr. Vance within 1 week of discharge. 3. Fill any medications prescribed to you and take as directed. 4. Return to the emergency room should you have a worsening in your condition. Referrals: Oleg Barrow MD [Staff Provider] - Arian Vance MD [Staff Provider] -
== END 2017-09-06 20:05 | disposition home or self-care (01) | DRG 872 ==
LOC: ED 21:08 → ERH 09-02 01:59 → 5RNO 09-02 03:14
PROVIDERS: ADMIT Family Medicine; ATTEND Internal Medicine
PROC: 0V950ZX Drainage of Scrotum, Open Approach, Diagnostic (ICD-10-PCS; principal; 2017-09-03 11:00)
DX: A41.9 Sepsis, unspecified organism (principal); E11.51 Type 2 diabetes mellitus with diabetic peripheral angiopathy without gangrene; D73.89 Other diseases of spleen; Z68.41 Body mass index [BMI] 40.0-44.9, adult; B95.1 Streptococcus, group B, as the cause of diseases classified elsewhere; N49.2 Inflammatory disorders of scrotum; E11.65 Type 2 diabetes mellitus with hyperglycemia; D64.9 Anemia, unspecified; E66.01 Morbid (severe) obesity due to excess calories; R91.8 Other nonspecific abnormal finding of lung field; I10 Essential (primary) hypertension; Z86.711 Personal history of pulmonary embolism; Z79.84 Long term (current) use of oral hypoglycemic drugs; Z86.718 Personal history of other venous thrombosis and embolism; Z79.01 Long term (current) use of anticoagulants

== ENCOUNTER 2017-09-28 10:47 | Emergency (ER) | payer BC ==
[2017-09-28 10:47] VITALS: BMI 40.6
[2017-09-28 11:20] VITALS: RESP 18; TEMP 98
--- NOTE | 2017-09-28 12:08 | ED PDOC ---
Arrival/HPI - General Chief Complaint: Abnormal Skin Integrity Time Seen by Provider: 09/28/17 11:00 Historian: Patient - History of Present Illness Narrative History of Present Illness (Text): 09/28/17 12:08 Patient prseented with Right sided scrotal swelling and tenderness 09/01/17. He was admitted for tenderness, redness and swelling to the right side of his scrotum and was found to be septic. Patient was in ICU, had I&D, and discharged with Amoxicillin/Clavulanate [Augmentin 500 MG-125 MG] 1 tab PO BID #14 tab and Doxycycline Hyclate 100 mg PO BID #14 capsule. Patient states he had another abscess prior to last admission, but was small and he assumed would drain on its own. The main abscess on admission was drained and is healing well per Dr. Vance. Patient said this past weekend, he noticed the abscess what was not I& Drained was getting larger. The pain only occurs when walking. Patient states he saw Dr. Arian Vance last night and was told to come in. PMH: PE (5 years ago, on eliquis) and DM2 PSH: Denies Family History: Denies Social History: Denies any tobacco, alcohol or illicit drug use; lives at home with his and son Allergies: Shellfish Home Meds: As per OCT PMD: Adanie Time/Duration: < month Symptom Course: Worsening Context: Walking Past Medical History - Provider Review Nursing Documentation Reviewed: Yes - Infectious Disease Hx of Infectious Diseases: None - Tetanus Immunization Tetanus Immunization: Unknown - Cardiac Hx Cardiac Disorders: Yes Hx Hypertension: Yes Hx Peripheral Vascular Disease: Yes (RIGHT LEG 02-06-14) - Pulmonary Hx Respiratory Disorders: Yes Hx Pulmonary Embolism: Yes - Neurological Hx Neurological Disorder: No - HEENT Hx HEENT Disorder: No (WEARS RX GLASSES) - Renal Hx Renal Disorder: No - Endocrine/Metabolic Hx Endocrine Disorders: Yes Hx Diabetes Mellitus Type 2: Yes - Hematological/Oncological Hx Blood Transfusions: No Hx Blood Transfusion Reaction: No - Integumentary Hx Dermatological Disorder: No - Musculoskeletal/Rheumatological Hx Musculoskeletal Disorders: Yes - Gastrointestinal Hx Gastrointestinal Disorders: No - Genitourinary/Gynecological Hx Genitourinary Disorders: No - Psychiatric Hx Emotional Abuse: No Hx Physical Abuse: No Hx Substance Use: No - Anesthesia Hx Anesthesia Reactions: No Hx Malignant Hyperthermia: No - Suicidal Assessment Feels Threatened In Home Enviroment: No Family/Social History - Physician Review Nursing Documentation Reviewed: Yes Family/Social History: Unknown Family HX Smoking Status: Never Smoked Hx Alcohol Use: No Hx Substance Use: No Hx Substance Use Treatment: No Allergies/Home Meds Allergies/Adverse Reactions: Allergies shellfish derived Allergy (Verified 09/28/17 11:17) ANAPHYLAXIS Home Medications: Home Meds Medication Instructions Recorded Confirmed Apixaban [Eliquis] 5 mg PO DAILY 01/11/17 09/28/17 MetFORMIN [glucoPHAGE] 1,000 mg PO BID 01/13/17 09/28/17 Saxagliptin HCl [Onglyza] 5 mg PO DAILY 09/28/17 09/28/17 Review of Systems - Physician Review All systems were reviewed & negative as marked: Yes - Review of Systems Constitutional: absent: Fatigue, Weight Change, Fevers Eyes: absent: Vision Changes, Photophobia, Eye Pain ENT: absent: Hearing Changes, Tinnitus, TMJ Pain Respiratory: absent: SOB, Cough, Sputum Cardiovascular: absent: Chest Pain, Palpitations, Edema, Calf Pain Gastrointestinal: absent: Abdominal Pain, Stool Changes, Constipation Genitourinary Male: absent: Dysuria, Frequency, Hematuria Musculoskeletal: absent: Arthralgias, Back Pain, Neck Pain, Joint Swelling, Myalgias Skin: Abscess Neurological: absent: Headache, Dizziness, Focal Weakness Endocrine: absent: Diaphoresis, Polyuria, Polydipsia Hemo/Lymphatic: absent: Easy Bleeding, Easy Bruising Psychiatric: absent: Anxiety, Depression, Suicidal Ideation Physical Exam Vital Signs Reviewed: Yes Vital Signs Temp Pulse Resp BP Pulse Ox 09/28/17 14:33 75 18 125/75 100 09/28/17 13:48 82 18 129/84 100 09/28/17 11:13 98 F 90 18 141/91 H 98 Temperature: Afebrile Blood Pressure: Hypertensive Pulse: Regular Respiratory Rate: Normal Appearance: Positive for: Non-Toxic, Uncomfortable - Systems Exam Head: Present: Normocephalic Pupils: Present: PERRL Extroacular Muscles: Present: EOMI. No: Gaze Palsy, Entrapment Conjunctiva: Present: Normal. No: Injected, Icteric Mouth: Present: Moist Mucous Membranes. No: Dry, Drooling Pharnyx: Present: Normal. No: ERYTHEMA, EXUDATE Nose (Internal): Present: Normal Inspection. No: No Active Bleeding, Moist, Engorged Neck: Present: Normal Range of Motion, Trachea Midline. No: JVD, Lymphadenopathy, Bruit Cardiovascular: Present: Regular Rate and Rhythm, Normal S1, S2. No: Murmurs, Irregular Rhythm, Tachycardic, Bradycardic Abdomen: Present: Normal Bowel Sounds. No: Tenderness, Distention, Peritoneal Signs Genitourinary Male: Present: Testicle Tenderness, Testicle Swelling, Other ( medial right scrotal abscess) Upper Extremity: Present: Normal Inspection, NORMAL PULSES, Capillary Refill < 2s. No: Edema Lower Extremity: Present: Normal Inspection, NORMAL PULSES, Capillary Refill < 2 s. No: Edema Neurological: Present: GCS=15, CN II-XII Intact, Speech Normal, Motor Func Grossly Intact Skin: Present: Warm, Dry, Normal Color. No: Rashes Psychiatric: Present: Alert, Oriented x 3, Normal Insight Medical Decision Making ED Course and Treatment: 09/28/17 12:12 testicular ultrasound CBC CMP, Mg, Ph VBG shock Dr. Arian Vance consulted, attempted to contact, will follow 09/28/17 13:00 Dr. Vance states patient will go to OR today for I&D Patient is NPO patient at testicular ultrasound 09/28/17 14:24 Dr. Vance states with final ultrasound reading, patient may not need to go to OR, will follow preop work cancelled for now 09/28/17 14:49 Keflex given Patient to be sent home on antibiotics after labs return Reassessment Condition: Unchanged - Lab Interpretations Lab Results: 09/28/17 14:02 Lab Results 09/28/17 14:35: PT 12.8 H, INR 1.12 H, APTT 68.3 H 09/28/17 14:02: Blood Type Pending, Antibody Screen Pending, BBK History Checked No verified bt 09/28/17 14:02: pO2 41, VBG pH 7.31 L, VBG pCO2 61.0 H, VBG HCO3 30.7 H, VBG Total CO2 32.6 H, VBG O2 Sat (Calc) 80.6 H, VBG Base Excess 2.8 H, VBG Potassium 3.7, Sodium 139.0, Chloride 104.0, Glucose 131 H, Lactate 2.1, FiO2 21.0, Venous Blood Potassium 3.7 09/28/17 14:02: Urine Color Straw, Urine Appearance Clear, Urine pH 6.5, Ur Specific [place] 1.010, Urine Protein Negative, Urine Glucose (UA) Negative, Urine Ketones Negative, Urine Blood Negative, Urine Nitrate Negative, Urine Bilirubin Negative, Urine Urobilinogen 0.2, Ur Leukocyte Esterase Negative 09/28/17 14:02: WBC 7.6 D, RBC 5.15, Hgb 14.0, Hct 41.0 L, MCV 79.6 L, MCH 27.2 , MCHC 34.1, RDW 13.8, Plt Count 276, MPV 10.5, Gran % 58.1, Lymph % (Auto) 30.8 , [place] % (Auto) 8.3 H, Eos % (Auto) 2.1, Baso % (Auto) 0.7, Gran # 4.39, Lymph # 2.3, [place] # 0.6, Eos # 0.2, Baso # 0.05 I have reviewed the lab results: Yes - RAD Interpretation Narrative RAD Interpretations (Text): 09/28/17 13:53' testicular US: no evidence of abscess. indurated tissue, mildly hypervascular adjacent to surgical wound in posterior right scrotal wall. cannot rule out cellulitis Radiology Orders: 09/28/17 11:58 TESTES DUPLEX COMPLETE [US] Stat Early Childhood Associate: Radiologist Disposition/Present on Arrival - Present on Arrival Any Indicators Present on Arrival: Yes History of DVT/PE: Yes History of Uncontrolled Diabetes: No Urinary Catheter: No History of Decub. Ulcer: No History Surgical Site Infection Following: None - Disposition Have Diagnosis and Disposition been Completed?: Yes Diagnosis: Cellulitis, scrotum Disposition: HOME/ ROUTINE Disposition Time: 15:24 Patient Plan: Discharge Patient Problems: Current Active Problems Problem Status Onset Cellulitis, scrotum Acute Abscess, scrotum Acute Condition: GUARDED Discharge Instructions (ExitCare): Cellulitis (ED) Additional Instructions: follow up with urology if induration continues to enlarge, increased pain, numbness, tingling, drainage return to ED if symptoms worsen, fever, chills Prescriptions: Clindamycin [Cleocin] 150 mg PO Q6H #28 cap Forms: [employer] (Kiswahili)
--- NOTE | 2017-09-28 13:38 | US ---
HISTORY: abscess: History of surgery for scrotal abscess following ultrasound of 09/01/2017. Patient now complains of focal "Knot" adjacent to surgical wound. TECHNIQUE: Realtime sonography through the scrotum with color and doppler flow. COMPARISON: 09/01/2017 FINDINGS: RIGHT TESTICLE: Measures 4.0 x 1.9 x 3.3 cm. Normal echotexture and flow. No mass. RIGHT EPIDIDYMIS: Normal size and morphology LEFT TESTICLE: Measures 3.7 x 1.9 x 3.1 cm. Normal echotexture and flow. No mass. LEFT EPIDIDYMIS: Normal size and morphology HYDROCELE: None. VARICOCELE: None. OTHER FINDINGS: Right scrotal wall, posterior aspect, adjacent surgical wound, focal induration with mildly hypervascular tissue. No evidence of phlegmon or abscess. Possible cellulitis. Correlate clinically. IMPRESSION: No evidence of abscess. Indurated tissue, mildly hypervascular, adjacent to surgical wound in posterior right scrotal wall. Cannot rule out cellulitis. Correlate clinically.
[2017-09-28 14:26] LABS: VENOUS BLOOD GAS BASE EXCESS 2.8 mmol/L (0.0-2.0); VENOUS BLOOD GAS PO2 41 mm/Hg (30-55); VENOUS BLOOD PH 7.31 (7.32-7.43)
[2017-09-28 14:32] LABS: BASO # 0.05 K/mm3 (0.0-2.0); BASO % 0.7 % (0.0-3.0); EOS # 0.2 (0.0-0.7); EOS % 2.1 % (1.5-5.0); GRAN # 4.39 (1.4-6.5); GRAN % 58.1 % (50.0-68.0); LYMPH # 2.3 (1.2-3.4); LYMPH % 30.8 % (22.0-35.0); MEAN CELL VOLUME 79.6 fl (80.0-105.0); MEAN CORPUSCULAR HEMOGLOBIN 27.2 pg (25.0-35.0); MEAN CORPUSCULAR HGB CONC 34.1 g/dl (31.0-37.0); MEAN PLATELET VOLUME 10.5 fl (7.0-11.0); MONO # 0.6 (0.1-0.6); MONO % 8.3 % (1.0-6.0); RBC 5.15 10^6/uL (3.5-6.1); RED CELL DISTRIBUTION WIDTH 13.8 % (11.5-14.5); WHITE BLOOD COUNT 7.6 10^3/ul (4.5-11.0)
[2017-09-28 14:33] VITALS: BP 125/75; PULSE 75
[2017-09-28 15:07] LABS: PH,URINE 6.5 (4.7-8.0); URINE APPEARANCE CLEAR (CLEAR); URINE BILIRUBIN NEGATIVE (NEGATIVE); URINE BLOOD NEGATIVE (NEGATIVE); URINE COLOR STRAW (YELLOW); URINE GLUCOSE (UA) NEGATIVE (NEGATIVE); URINE LEUKOCYTE ESTERASE NEGATIVE Leu/uL (NEGATIVE); URINE NITRATE NEGATIVE (NEGATIVE); URINE PROTEIN NEGATIVE mg/dL (<30 mg/dL); URINE UROBILINOGEN 0.2 E.U./dL (<1 E.U./dL)
[2017-09-28 15:08] LABS: INR 1.12 (0.93-1.08); PARTIAL THROMBOPLASTIN TIME 68.3 Seconds (25.1-36.5); PROTHROMBIN TIME 12.8 SECONDS (9.4-12.5)
[2017-09-28 15:33] LABS: ALB/GLOB RATIO 1.2 (1.1-1.8); ALBUMIN 3.9 g/dL (3.0-4.8); ALT/SGPT 26 U/L (7-56); AST/SGOT 15 U/L (17-59); BLOOD UREA NITROGEN 8 mg/dL (7-21); CALCIUM 9.9 mg/dL (8.4-10.5); GFR AFRICAN-AMERICAN > 60; GFR NON-AFRICAN AMERICAN > 60; MAGNESIUM 1.8 mg/dL (1.7-2.2)
[2017-09-28 15:43] VITALS: O2SAT 99
== END 2017-09-28 15:43 | disposition home or self-care (01) ==
LOC: ED 10:47
DX: N49.2 Inflammatory disorders of scrotum (principal); I10 Essential (primary) hypertension